=== PATIENT | female | born 1955 | race Caucasian/White ===

== ENCOUNTER → 2018-11-17 09:03 | Outpatient (CLI) | payer MEDICARE, SELFPAY ==
--- NOTE | 2018-11-17 09:07 | XR_ITS ---
XR elbow LT min 3V HISTORY: Pain, follow-up fracture ITS.REASON: follow up, xrays out of sling ORDERING PHYSICIAN: Kenyon Stephens MD PATIENT AGE: 63 years COMPARISON: 10/21/2018 FINDINGS: Previously noted radial head fracture is less apparent. No displaced fat pad evident at this time. Calcifications once again noted in the antecubital region and may be due to synovial osteochondromas. There is some mild osteoarthritic changes of the elbow joint. 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
== END ==
PROVIDERS: PCP Physician Assistant; Visit Provider Orthopaedic Surgery
DX: S52.125A Nondisplaced fracture of head of left radius, initial encounter for closed fracture (principal)
CPT/HCPCS: 73080

== ENCOUNTER → 2019-06-28 08:32 | Outpatient (CLI) | payer MEDICARE, SELFPAY ==
--- NOTE | 2019-06-28 08:37 | CT_ITS ---
PROCEDURE: CT HEAD/BRAIN WO/W CON CLINICAL INDICATION: HEADACHES, right-sided and DIZZINESS COMPARISON: No exams were available for comparison TECHNIQUE: IV Contrast: 100ML OPITRAY 320 Axial images obtained. All CT scans at the facility use one or more dose reduction, viz: automated exposure control, ma/kV adjustment per patient size (including targeted exams where dose is matched to indication, i.e. head), or iterative reconstruction technique. FINDINGS: No midline shift, mass effect, intracranial hemorrhage, hydrocephalus, or extra-axial fluid collection is evident. The calvarium has an unremarkable appearance. Following ingestion contrast there is no vascular abnormality noted and there is no abnormal enhancement. The base of skull appears normal, the mastoids are clear. The bony calvarium appears intact. IMPRESSION: Unremarkable CT scan of the brain without and with IV contrast Dictated by: Dr. Abelino Phoenix MD 06/28/2019 10:[address] Abelino Phoenix MD in [place] 06/28/2019 10:48
[2019-06-28 09:24] LABS: Blood Urea Nitrogen 25 mg/dL (7-18); Creatinine,Serum 1.47 mg/dL (0.55-1.02); Estimated Glomerular Filt Rate 36 ml/min (>60); GFR (African American) 43 ML/MIN (>60)
== END ==
PROVIDERS: PCP Physician Assistant; Visit Provider Physician Assistant
DX: R51 Headache (principal); R42 Dizziness and giddiness
CPT/HCPCS: 36415; 70470; 82565; 84520; Q9967

== ENCOUNTER 2020-01-13 12:43 | Emergency (ER) | payer MEDICARE, SELFPAY ==
[2020-01-13] VITALS (7 sets, daily range): BP systolic 127–155; BP diastolic 80–101; PULSE 81–113; RESP 16–18; TEMP 36.4; O2SAT 93–100; BMI 35.4
[2020-01-13 13:20] LABS: Eosinophils # 0.1 K/mm3 (0.0-0.4); Mean Corpuscular Volume 87.9 fl (81-99); Red Cell Distribution Width 13.9 % (11.5-17.5)
[2020-01-13 13:22] LABS: Basophils % 0.2 % (0.1-2.0); Chloride 101 mmol/L (98-107); Eosinophils % 1.6 % (0.1-12.0); Hematocrit 56.7 % (37.0-47.0); Lymphocytes # 0.4 K/mm3 (0.7-4.5); Lymphocytes % 5.4 % (10-50); Mean Corpuscular HGB Conc 33.1 g/dL (31.8-35.4); Mean Corpuscular Hemoglobin 29.1 pg (27.0-31.2); Monocytes # 0.3 K/mm3 (0.1-1.0); Monocytes % 4.8 % (1.7-9.3); Neutrophils # 5.8 K/mm3 (1.8-7.8); Neutrophils % 87.9 % (37.0-80.0); Platelet Count 266 K/mm3 (142-424); Red Blood Count 6.45 M/mm3 (4.20-5.40); White Blood Count 6.6 K/mm3 (4.8-10.8)
[2020-01-13 13:23] LABS: Hemoglobin 18.8 g/dL (12.2-16.2); Potassium 4.1 mmoL/L (3.5-5.1); Sodium 141 mmol/L (136-145)
[2020-01-13 13:24] LABS: MANUAL DIFFERENTIAL MANUAL DIFFERENTIAL (MANUAL DIFF)
[2020-01-13 13:25] LABS: Alanine Aminotransferase 25 U/L (12-78); Alkaline Phosphatase 114 U/L (38-126); Anion Gap 20.1 mEq/L (5-15); Aspartate Amino Transferase 22 U/L (14-36); Bilirubin,Total 0.8 mg/dl (0.2-1.3); Blood Urea Nitrogen 22 mg/dl (7-17); Carbon Dioxide 24 mmol/L (22.0-30.0); Creatinine Clearance Estimated 43 mL/min (50-200); Estimated Glomerular Filt Rate 27 ml/min (>60); GFR (African American) 32 ML/MIN (>60)
[2020-01-13 13:26] LABS: Albumin Level 4.7 g/dl (3.5-5.0); Albumin/Globulin Ratio 1.1 (1.1-1.8); Calcium 9.9 mg/dl (8.4-10.2); Globulin 4.1 g/dL (1.3-3.2); Glucose 183 mg/dl (74-100); Total Protein,Serum 8.8 g/dl (6.3-8.2)
[2020-01-13 13:30] LABS: Eosinophils % 1 % (0-3); Lymphocytes % 6 % (10-50); Monocytes % 3 % (2-9); Neutrophils % 87 % (42-76); Platelet Estimate Normal; RBC Morphology Normal; Total Cells Counted 100
--- NOTE | 2020-01-13 13:35 | HMH.EDNVD ---
ED Disposition Clinical Impression: Gastroenteritis Disposition: Home, Self-Care Condition on Discharge: Good Instructions: DI for Nausea -- Adult, DI for Nausea -- Child, DI for Diarrhea and Traveler's Diarrhea -- Adult, DI for Diarrhea and Traveler's Diarrhea -- Child Prescriptions: Promethazine HCl 50 mg PO TID 6 Days #20 tab Transmission Status: Pending to [facility] #[id number] Ondansetron [Zofran 4mg ODT] 4 mg PO TID PRN 4 Days #15 tab.rapdis PRN Reason: Nausea Transmission Status: Pending to [facility] #[id number] Referrals: Deepali Smith [Primary Care Provider] - - Critical Care Critical Care Time: No Attestation: On 01/13/20, the high probability of a clinically significant, sudden or life threatening deterioration of the following system(s) required my full and direct attention, intervention and personal management. The time I documented below is in addition to time spent performing reported procedures but includes the following listed in this critical care notation. Medical Decision Making - Medical Records Medical records reviewed: Yes: I reviewed the patient's medical records. - Vj Inquiry Pt receiving controlled substance: No Vital Signs: 01/13/20 13:00 Temperature 97.6 F Temperature Source Oral Pulse Rate [Right Radial] 113 H Respiratory Rate 18 Blood Pressure [Right Arm] 128/97 H Blood Pressure Mean [Right Arm] 107 Blood Pressure Source [Right Arm] Automatic Cuff Blood Pressure Position [Right Arm] Sitting 02 Sat by Pulse Oximetry 94 L Oxygen Delivery Method Room Air - Lab Data Lab results reviewed: Yes: I reviewed the patient's lab results. Lab Results 01/13/20 13:00: WBC 6.6, RBC 6.45 H, Hgb 18.8 H*, Hct 56.7 H, MCV 87.9, MCH 29.1, MCHC 33.1, RDW 13.9, Plt Count 266, MPV 9.0, Neut % (Auto) 87.9 H, Lymph % (Auto) 5.4 L, [place] % (Auto) 4.8, Eos % (Auto) 1.6, Baso % (Auto) 0.2, Neut # (Auto) 5.8, Lymph # (Auto) 0.4 L, [place] # (Auto) 0.3, Eos # (Auto) 0.1, Baso # (Auto) 0.0, Total Counted 100, Neutrophils % (Manual) 87 H, Band Neutrophils % 2.0, Lymphocytes % (Manual) 6 L, Monocytes % (Manual) 3, Eosinophils % (Manual) 1, Metamyelocytes % 1.0, Platelet Estimate Normal, RBC Morphology Normal 01/13/20 13:00: Sodium 141, Potassium 4.1, Chloride 101, Carbon Dioxide 24, Anion Gap 20.1 H, BUN 22 H, Creatinine 1.90 H, Estimated Creat Clear 43, Estimated GFR 27 L, Est GFR ( Amer) 32 L, Glucose 183 H, Calcium 9.9, Total Bilirubin 0.8, AST 22, ALT 25, Alkaline Phosphatase 114, Total Protein 8.8 H, Albumin 4.7, Globulin 4.1 H, Albumin/Globulin Ratio 1.1 Result diagrams: 01/13/20 13:00 01/13/20 13:00 Orders (Tests/Meds): ED MEDICATIONS Generic Name Dose Route Start Last Admin Trade Name Freq PRN Reason Stop Dose Admin Sodium Chloride 1,000 mls @ 999 mls/hr 01/13/20 13:15 01/13/20 13:10 Sod Chlor 0.9% 1000ml Bag IV 01/13/20 14:15 999 mls/hr .Q1H1M ALFONZO Administration Discontinued Medications Generic Name Dose Route Start Last Admin Trade Name Freq PRN Reason Stop Dose Admin Ondansetron HCl 4 mg 01/13/20 13:09 01/13/20 13:10 Zofran 4mg/2ml Vial IV 01/13/20 13:10 4 mg ONCE ONE Administration ORDERS Category Date Time Status Diarrhea 23 Panel, PCR Stat Lab 01/13/20 13:09 Ordered Urinalysis and Microscopic Stat Lab 01/13/20 13:09 Ordered Nausea/Vomiting/Diarrhea HPI - General Chief complaint: Nausea/Vomiting/Diarrhea Stated complaint: Vomiting, diarrhea Time Seen by Provider: 01/13/20 13:35 Mode of Arrival: Wheelchair Source of Information: Patient Limitations: No Limitations Description of Symptoms (Recalled from ER Triage Doc. by RN): pt reports vomitting and diarrhea since 10 pm lastnight. Pt reports generalized weakness. Pt also reports her daughter and her grandson also have vomitting and diarrhea since lastnight. - History of Present Illness HPI Narrative: 64-year-old female comes in with a 12-hour onse
--- NOTE | 2020-01-13 16:05 | PC.NURSE ---
pt drinking water, tolerating well
[2020-01-13 16:32] LABS: Microscopic, Urine URINE MICROSCOPIC (MICROSCOPIC)
[2020-01-13 16:34] LABS: Appearance,Urine CLEAR (Clear); Bilirubin,Urine Negative (Negative); Blood, Urine Negative (Negative); Color,Urine YELLOW (Yellow); Glucose,Urine (UA) Negative (Negative); Ketones,Urine Negative (Negative); Leukocyte Esterase,Urine Negative (Negative); Nitrate,Urine Negative (Negative); Protein,Urine 1+ (Negative); Specific Gravity, Urine >= 1.030 (1.005-1.030); Urobilinogen,Urine 0.2 EU/dl (0.2)
[2020-01-13 16:42] LABS: Amorphous Sediment,Urine Trace /lpf; Coarse Granular Casts,Urine Occasional #/lpf (0); WBC,Urine Occasional #/hpf (0-3)
== END 2020-01-13 16:57 | disposition home or self-care (01) ==
PROVIDERS: Emergency Provider Family Medicine; PCP Physician Assistant
DX: K52.9 Noninfective gastroenteritis and colitis, unspecified (principal); I10 Essential (primary) hypertension; K21.9 Gastro-esophageal reflux disease without esophagitis; F41.8 Other specified anxiety disorders; F17.210 Nicotine dependence, cigarettes, uncomplicated
CPT/HCPCS: 80053; 81001; 85007; 85025; 96365; 96366; 96375; 99283; 99284; J2405

== ENCOUNTER 2020-04-30 08:41 | Inpatient (IN) | payer MEDICARE, SELFPAY ==
[2020-04-30] VITALS (10 sets, daily range): BP systolic 117–145; BP diastolic 70–77; PULSE 54–59; RESP 16–20; TEMP 36.4–36.7; O2SAT 92–97; BMI 37.2; BMI 36.0
--- NOTE | 2020-04-30 08:37 | ECG_ITS ---
APPROVED REPORT Exam: Resting ECG HR:54 bpm ECG Measurements Heart Rate 54 AXES SD 146 P 65 QRSd 88 QRS 62 QT 460 T 67 QTc 436 Conclusion Sinus bradycardia Otherwise normal ECG Electronically signed by : Kishor Khan, 05/01/2020 07:30:13
--- NOTE | 2020-04-30 08:45 | HMH.EDGENADL ---
ED Disposition Clinical Impression: Pancreatitis due to biliary obstruction Qualifiers: Chronicity: acute Acute pancreatitis complication: no infection or necrosis Qualified Code(s): K85.10 - Biliary acute pancreatitis without necrosis or infection Disposition: Admitted As Inpatient Condition on Discharge: Fair Instructions: DI for Acute Abdomen Referrals: Deepali Smith [Primary Care Provider] - - Critical Care Critical Care Time: No Attestation: On , the high probability of a clinically significant, sudden or life threatening deterioration of the following system(s) required my full and direct attention, intervention and personal management. The time I documented below is in addition to time spent performing reported procedures but includes the following listed in this critical care notation. Medical Decision Making - Medical Records Medical records reviewed: Yes: I reviewed the patient's medical records. - Vj Inquiry Pt receiving controlled substance: No Vital Signs: 04/30/20 08:41 04/30/20 10:11 Temperature 97.6 F Temperature Source Temporal Artery Scan Pulse Rate [Right] 54 L 58 L Respiratory Rate 18 20 Blood Pressure [Right Arm] 128/77 126/72 Blood Pressure Mean [Right Arm] 94 90 02 Sat by Pulse Oximetry 97 93 L Oxygen Delivery Method Room Air - Lab Data Lab Results 04/30/20 08:50: WBC 8.8, RBC 5.41 H, Hgb 15.4, Hct 48.8 H, MCV 90.3, MCH 28.5, MCHC 31.5 L, RDW 15.0, Plt Count 233, MPV 8.7, Neut % (Auto) 70.1, Lymph % (Auto) 21.9, [place] % (Auto) 5.3, Eos % (Auto) 2.1, Baso % (Auto) 0.6, Neut # (Auto) 6.2, Lymph # (Auto) 1.9, [place] # (Auto) 0.5, Eos # (Auto) 0.2, Baso # (Auto) 0.1 04/30/20 08:50: Sodium 141, Potassium 4.0, Chloride 101, Carbon Dioxide 35 H, Anion Gap 9.0, BUN 21 H, Creatinine 1.40 H, Estimated Creat Clear 61, Estimated GFR 38 L, Est GFR ( Amer) 46 L, Glucose 147 H, Calcium 9.6, Total Bilirubin 1.4 H, AST 391 H*, ALT 230 H, Alkaline Phosphatase 222 H, Troponin I < 0.01, Total Protein 7.4, Albumin 4.1, Globulin 3.3 H, Albumin/Globulin Ratio 1.2, Amylase 696 H* Result diagrams: 04/30/20 08:50 04/30/20 08:50 Orders (Tests/Meds): ED MEDICATIONS Discontinued Medications Generic Name Dose Route Start Last Admin Trade Name Carla PRN Reason Stop Dose Admin Morphine Sulfate 4 mg 04/30/20 08:49 04/30/20 09:05 Morphine 4mg/Ml Syringe IV 04/30/20 08:50 4 mg ONCE ONE Administration Ondansetron HCl 4 mg 04/30/20 08:49 04/30/20 09:05 Ondansetron 4mg/2ml Vial IV 04/30/20 08:50 4 mg ONCE ONE Administration ORDERS Category Date Time Status Amylase Stat Lab 04/30/20 08:50 Results Comprehensive Metabolic Panel Stat Lab 04/30/20 08:50 Results Lipase Stat Lab 04/30/20 08:50 Results Troponin I Q3H Lab 04/30/20 12:00 Ordered Troponin I Q3H Lab 04/30/20 15:00 Ordered Troponin I Stat Lab 04/30/20 08:50 Results Medical Decision Narrative: In summary this is a 64-year-old female presenting to the emergency department with epigastric and right upper quadrant pain. Patient clinically stable on arrival. Vital signs within normal limits, she is conversational but appears uncomfortable. Differential diagnoses include acute cholelithiasis, cholecystitis, peptic ulcer disease, CAD. Plan to obtain CBC, CMP, lipase, right upper quadrant ultrasound, chest x-ray, EKG, troponin profile. Given 4 mg of IV morphine and 4 mg of IV Zofran. Laboratory results show evidence of biliary tract obstruction with bilirubin of 1.4, elevated AST, elevated ALT. Significantly elevated amylase and lipase. Right upper quadrant ultrasound shows gallstones within the fundus, but no biliary ductal dilation. Overall presentation most consistent with pancreatitis, due to gallstone. No cholecystitis. Patient stable in the emergency department. Feeling somewhat better after medication. General surgery, Dr. Boyle consulted for possible cholecystectomy. Patient be admitted
--- NOTE | 2020-04-30 08:48 | XR_ITS ---
PROCEDURE: XR CHEST PORTABLE CLINICAL HISTORY: epigastric pain, chest COMPARISON: No exams were available for comparison FINDINGS: The cardiomediastinal silhouette and pulmonary vascularity are within normal limits. No lobar consolidation or collapse. There is irregular opacity noted in the right upper lobe at 2nd interspace which may be due to summation artifact. Cannot exclude developing pulmonary nodule at 8 mm. Upright PA and lateral chest may provide further evaluation. No acute bony abnormalities. IMPRESSION: Possible right upper lobe nodule. Follow-up suggested otherwise negative Dictated by: Zaid Rivas MD 04/30/2020 09:44 Zaid Rivas MD in [place] 04/30/2020 09:44
--- NOTE | 2020-04-30 08:49 | US_ITS ---
PROCEDURE: US ABDOMEN LIMITED CLINICAL INDICATION: RUQ abdominal pain COMPARISON: No exams were available for comparison FINDINGS: PANCREAS: Unremarkable. No obvious mass or abnormal fluid collection. No ductal dilatation LIVER: No focal liver lesions demonstrated. Homogeneous echogenicity. No intrahepatic biliary ductal dilatation evident. There is appropriate direction of blood flow within a non dilated portal vein RIGHT KIDNEY: Unremarkable. Normal size and echogenicity. No hydronephrosis GALLBLADDER: There are multiple shadowing stones present. No gallbladder wall thickening, pericholecystic fluid, or biliary dilatation is evident. IMPRESSION: Cholelithiasis Dictated by: Zaid Rivas MD 04/30/2020 09:52 Zaid Rivas MD in [place] 04/30/2020 09:52
[2020-04-30 09:03] LABS: Basophils # 0.1 K/mm3 (0-0.2); Basophils % 0.6 % (0.1-2.0); Eosinophils # 0.2 K/mm3 (0.0-0.4); Eosinophils % 2.1 % (0.1-12.0); Hematocrit 48.8 % (37.0-47.0); Hemoglobin 15.4 g/dL (12.2-16.2); Lymphocytes # 1.9 K/mm3 (0.7-4.5); Lymphocytes % 21.9 % (10-50); Mean Corpuscular HGB Conc 31.5 g/dL (31.8-35.4); Mean Corpuscular Hemoglobin 28.5 pg (27.0-31.2); Mean Corpuscular Volume 90.3 fl (81-99); Mean Platelet Volume 8.7 fl (7.4-10.4); Monocytes # 0.5 K/mm3 (0.1-1.0); Monocytes % 5.3 % (1.7-9.3); Neutrophils # 6.2 K/mm3 (1.8-7.8); Neutrophils % 70.1 % (37.0-80.0); Platelet Count 233 K/mm3 (142-424); Red Blood Count 5.41 M/mm3 (4.20-5.40); White Blood Count 8.8 K/mm3 (4.8-10.8)
[2020-04-30 09:11] LABS: Alanine Aminotransferase 230 U/L (12-78); Albumin Level 4.1 g/dl (3.5-5.0); Albumin/Globulin Ratio 1.2 (1.1-1.8); Alkaline Phosphatase 222 U/L (38-126); Amylase 696 U/L (30-110); Aspartate Amino Transferase 391 U/L (14-36); Bilirubin,Total 1.4 mg/dl (0.2-1.3); Blood Urea Nitrogen 21 mg/dl (7-17); Calcium 9.6 mg/dl (8.4-10.2); Carbon Dioxide 35 mmol/L (22.0-30.0); Chloride 101 mmol/L (98-107); Creatinine Clearance Estimated 61 mL/min (50-200); Estimated Glomerular Filt Rate 38 ml/min (>60); GFR (African American) 46 ML/MIN (>60); Globulin 3.3 g/dL (1.3-3.2); Glucose 147 mg/dl (74-100); Sodium 141 mmol/L (136-145); Total Protein,Serum 7.4 g/dl (6.3-8.2)
[2020-04-30 09:24] LABS: Troponin I < 0.01 ng/ml (0.00-0.034)
--- NOTE | 2020-04-30 10:24 | PC.NURSE ---
message left for DR MORALES to call back
--- NOTE | 2020-04-30 10:31 | PC.NURSE ---
Dr Arthur spoke with Dr Mckeon and Dr Boyle
--- NOTE | 2020-04-30 11:32 | HMH.PHAINT ---
MEDICATION RECONCILIATION COMPLETED ON PATIENT USING EXTERNAL FILL HISTORY FROM PHARMACY. -WALE FOUNTAIN, JASOND
--- NOTE | 2020-04-30 11:33 | HMH.PHAVTE ---
[facility] Pharmacy VTE Monitoring - Patient Demographics Admission date: 04/30/20 Report Date: 04/30/20 Time: 11:33 Allergies/Adverse Reactions: Patient Allergies No Known Drug Allergies [NO KNOWN DRUG ALLERGIES] Allergy (Unknown, Verified 11/17/18 10:17) Height: 1.6 m Weight: 95.254 kg Patient Problems: Current Active Problems Pancreatitis due to biliary obstruction (Acute) - VTE Risk Labs: VTE Related Lab Results Hgb 15.4 g/dL (12.2-16.2) 04/30/20 08:50 Hct 48.8 % (37.0-47.0) H 04/30/20 08:50 Plt Count 233 K/mm3 (142-424) 04/30/20 08:50 BUN 21 mg/dl (7-17) H 04/30/20 08:50 Creatinine 1.40 mg/dl (0.52-1.04) H 04/30/20 08:50 Estimated Creat Clear 61 mL/min (50-200) 04/30/20 08:50 - Prophylaxis VTE Prophylaxis Ordered?: Yes Types of VTE Prophylaxis: TEDS Knee High Location of Applied Device: Bilateral Lower Extremeties
[2020-04-30 11:48] LABS: Coronavirus 19 IgG Antibody Negative (Negative); Coronavirus 19 IgM Antibody Negative (Negative)
--- NOTE | 2020-04-30 12:00 | PC.NURSE ---
Called 2nd floor to notify of IGG/IGM being negative
--- NOTE | 2020-04-30 12:11 | PC.NURSE ---
Report given to 2nd floor nurse Ginny at bedside
--- NOTE | 2020-04-30 12:55 | HMH.HP ---
*Admission Date: 04/30/20 <McmanusAzaleaAngi 04/30/20 13:16> *Chief complaint: abdominal pain <McmanusAngi 04/30/20 13:16> *History of present illness: Ms. Gibson is a 64 year old female with a history of hypertension and arthritis being cared for by a nurse practitioner in [place], [place] who presented to [facility] emergency room with severe right upper quadrant abdominal pain. She states the pain awakened her about 2 AM. She has had associated nausea and minimal vomiting. Her bowels have been moving normally. She states last night for dinner she had fried potatoes and sausage. She denies any fever and has had one episode of pain back in August at which time the plan was to for her to have a cholecystectomy. Sheela did delay this and she has yet to have her gallbladder taken out. Patient denies any cardiac or respiratory problems although she does smoke a pack and a half of cigarettes a day. At the present time she appears comfortable after receiving morphine and Zofran in the emergency room. Lab results show a white blood cell count of 8800. Liver function studies are all elevated. Amylase is 696. Right upper quadrant ultrasound revealed gallstones within the fundus but no biliary ductal dilatation. Chest x-ray shows a possible right upper lobe nodule and is otherwise negative. Patient was admitted for further evaluation. The surgeon has been consulted. <MariettaAngi 04/30/20 13:16> [facility] History Medical History: Reports:: Anxiety, Depression, Gastroesophageal Reflux Disease(GERD), Hypertension Denies:: Diabetes Mellitus Type 2 <Angi Mcmanus 04/30/20 13:16> *Have you ever received a pneumonia vaccine?: No <Angi Mcmanus 04/30/20 13:16> *Have you received a flu vaccine this season?: No <Angi Mcmanus 04/30/20 13:16> Other Medical History: Reports: Arthritis <Angi Mcmanus 04/30/20 13:16> Laterality Cases: Left: Arthroscopy Knee, Right: Other, Bilateral: Carpal Tunnel Release <Angi Mcmanus 04/30/20 13:16> Other Surgeries: Yes: Colonoscopy <Angi Mcmanus 04/30/20 13:16> - *Social History Smoking Status: Current every day smoker <Anig Mcmanus 04/30/20 13:16> Tobacco Type: cigarettes <Angi Mcmanus 04/30/20 13:16> # Packs/Day (cigarettes): 1 <Angi Mcmanus 04/30/20 13:16> Alcohol Intake: never <Angi Mcmanus 04/30/20 13:16> *Occupational Status:: other <Angi Mcmanus 04/30/20 13:16> Household Members: family <Angi Mcmanus 04/30/20 13:16> *Travel in the last 8 weeks: None <Angi Mcmanus 04/30/20 13:16> - Psychiatric History Pschychiatric History:: Reports:: Anxiety, Depression <Angi Mcmanus 04/30/20 13:16> Family Hx:: No significant family history <Angi Mcmanus 04/30/20 13:16> Review of Systems - Constitutional Denies fever(s), Denies headache(s) <McmanusAngi 04/30/20 13:16> - Eyes Denies change in vision <McmanusAngi 04/30/20 13:16> - ENT Reports ear pain, Reports sore throat, Denies dizziness <MariettaAngi 04/30/20 13:16> - *Cardiovascular Denies chest pain, Denies shortness of breath <MariettaAngi 04/30/20 13:16> - *Respiratory Reports cough <MariettaAngi 04/30/20 13:16> - *Gastrointestinal Reports abdominal pain, Reports heartburn, Reports nausea, Reports vomiting, Denies change in bowel habits, Denies constipation, Denies loose stools, Denies vomiting blood <Azalea Mcmanushy 04/30/20 13:16> - *Genitourinary Denies difficulty urinating <MariettaAngi - 04/30/20 13:16> - *Musculoskeletal Denies abnormal walking <McmanusAngi 04/30/20 13:16> Comments: Has arthritis <McmanusAngi - 04/30/20 13:16> - *Neurologic Denies headache(s), Denies numbness <McmanusAngi 04/30/20 13:16> Meds Home Medications Medication Instructions Recorded Confirmed Type Duloxetine HCl 60 mg PO DAILY 10/21/18 04/30/20 History Levothyroxine Sodium 50 mcg PO DAILY 10/21/18 04/30/20 History [Levoth
[2020-04-30 13:01] LABS: Lipase 18959 U/L (23-300)
--- NOTE | 2020-04-30 16:22 | PC.NURSE ---
Pt arrived to the floor via wheelchair accompanied by myself at approx 1220. She is alert and oriented x4. Lungs with rhonchi and wheezes in the KIT. Abdomen is tender to palpation in RUQ and epigastrum. No nausea or vomiting noted. Pt has not wanted any pain meds since arriving to the floor as of yet. Small scab noted to rt forearm. She has a 20 in the LAC, its patent and infusing ns @ 125. Family at bedside and supportive. No questions or concerns, will continue to monitor.
--- NOTE | 2020-04-30 16:28 | HMH.GSCON ---
*Admission Date: 04/30/20 *Reason for consult:: Gallstone pancreatitis *History of present illness: This is a 64-year-old female who presents to emergency department with increasing abdominal pain. She was diagnosed with likely gallstone pancreatitis and the surgical service was consulted. Currently, she states that she feels much better . A truncated HPI from her admission H&P is forwarded below. From admission H&P: Ms. Gibson is a 64 year old female with a history of hypertension and arthritis being cared for by a nurse practitioner in [place], [place] who presented to [facility] emergency room with severe right upper quadrant abdominal pain. She states the pain awakened her about 2 AM. She has had associated nausea and minimal vomiting. Her bowels have been moving normally. She states last night for dinner she had fried potatoes and sausage. She denies any fever and has had one episode of pain back in August at which time the plan was to for her to have a cholecystectomy. Covid did delay this and she has yet to have her gallbladder taken out. Patient denies any cardiac or respiratory problems although she does smoke a pack and a half of cigarettes a day. At the present time she appears comfortable after receiving morphine and Zofran in the emergency room. Lab results show a white blood cell count of 8800. Liver function studies are all elevated. Amylase is 696. Right upper quadrant ultrasound revealed gallstones within the fundus but no biliary ductal dilatation. Chest x-ray shows a possible right upper lobe nodule and is otherwise negative. Patient was admitted for further evaluation. The surgeon has been consulted. Review of Systems - Constitutional Denies chills - Eyes Denies change in vision - ENT Denies difficulty swallowing - *Cardiovascular Denies chest pain - *Respiratory Denies cough - *Gastrointestinal Reports abdominal pain - *Genitourinary Denies painful urination - *Musculoskeletal Denies tingling - Integumentary/Breasts Denies new lesions - *Neurologic Denies abnormal walking, Denies dizziness, Denies headache(s), Denies numbness - Psychiatric Denies anxiety - Endocrine Denies cold intolerance - Hematologic/Lymphatic Denies easy bleeding - Allergic/Immunologic Denies wheezing H History Medical History: Reports:: Anxiety, Depression, Gastroesophageal Reflux Disease(GERD), Hypertension Denies:: Diabetes Mellitus Type 1, Diabetes Mellitus Type 2 *Have you ever received a pneumonia vaccine?: Yes *Have you received a flu vaccine this season?: No Other Medical History: Reports: Arthritis, Cataracts (cataracts removed), Fibromyalgia, Hypothyroidism, Thyroid Disease Laterality Cases: Left: Arthroscopy Knee, Right: Other, Bilateral: Carpal Tunnel Release Other Surgeries: Yes: Colonoscopy - *Social History Smoking Status: Current every day smoker Tobacco Type: cigarettes # Packs/Day (cigarettes): 1 Alcohol Intake: never *Occupational Status:: disabled Housing: house Household Members: family *Travel in the last 8 weeks: None - Psychiatric History Pschychiatric History:: Reports:: Anxiety, Depression Family Hx:: No significant family history Meds Home Medications Medication Instructions Recorded Confirmed Type Duloxetine HCl 60 mg PO DAILY 10/21/18 04/30/20 History Levothyroxine Sodium 50 mcg PO DAILY 10/21/18 04/30/20 History [Levothyroxine 50mcg (0.05mg) Tab] atenoloL [Atenolol 50mg Tab] 50 mg PO DAILY 10/21/18 04/30/20 History predniSONE [Deltasone 10mg tablet] 5 mg PO DAILY 10/21/18 04/30/20 History esomeprazole magnesium 40 mg 40 mg PO DAILY 10/27/18 04/30/20 History capsule,delayed release Hydrocodone/Acetaminophen [[place] 1 tab PO TIDP PRN 04/30/20 04/30/20 History 7.5-325 Tablet] Montelukast Sodium [Singulair 10mg 10 mg PO PM 04/30/20 04/30/20 History tablet] Logan-3 Fatty Acids/Fish Oil 1 each PO DAILY
--- NOTE | 2020-04-30 19:17 | PC.NURSE ---
report given to denzel
[2020-05-01] VITALS (22 sets, daily range): BP systolic 115–160; BP diastolic 58–90; PULSE 55–87; RESP 12–20; TEMP 36.4–36.8; O2SAT 89–97; BMI 36.9
[2020-05-01 06:19] LABS: Basophils # 0.1 K/mm3 (0-0.2); Basophils % 0.5 % (0.1-2.0); Eosinophils # 0.3 K/mm3 (0.0-0.4); Eosinophils % 3.6 % (0.1-12.0); Hematocrit 43.2 % (37.0-47.0); Lymphocytes # 2.4 K/mm3 (0.7-4.5); Lymphocytes % 27.7 % (10-50); Mean Corpuscular HGB Conc 30.5 g/dL (31.8-35.4); Mean Corpuscular Hemoglobin 27.7 pg (27.0-31.2); Mean Corpuscular Volume 90.8 fl (81-99); Mean Platelet Volume 8.8 fl (7.4-10.4); Monocytes # 0.5 K/mm3 (0.1-1.0); Monocytes % 5.2 % (1.7-9.3); Neutrophils # 5.5 K/mm3 (1.8-7.8); Platelet Count 193 K/mm3 (142-424); Red Blood Count 4.76 M/mm3 (4.20-5.40); Red Cell Distribution Width 15.1 % (11.5-17.5); White Blood Count 8.7 K/mm3 (4.8-10.8)
[2020-05-01 06:26] LABS: Chloride 105 mmol/L (98-107); Sodium 138 mmol/L (136-145)
--- NOTE | 2020-05-01 06:26 | PC.NURSE ---
Pt is A&Ox4 and has ambulated to the BR and the in hallway several times t/o shift. Pt continues to have pain to upper abd & epigastric area, medicated per SEP. Pt also c/o of shoulder pain that pt reports is her baseline d/t RA & fibromyalgia, medicated with Motrin. Lungs CTA. ABD is soft. Pt reports to passing flatus frequently and belching. Pt kept NPO at midnight for possible procedure. VSS, call light within reach.
[2020-05-01 06:27] LABS: Potassium 4.1 mmoL/L (3.5-5.1)
[2020-05-01 06:29] LABS: Alanine Aminotransferase 202 U/L (12-78); Albumin Level 3.6 g/dl (3.5-5.0); Albumin/Globulin Ratio 1.2 (1.1-1.8); Alkaline Phosphatase 166 U/L (38-126); Amylase 145 U/L (30-110); Anion Gap 7.1 mEq/L (5-15); Aspartate Amino Transferase 114 U/L (14-36); Bilirubin,Total 0.7 mg/dl (0.2-1.3); Blood Urea Nitrogen 18 mg/dl (7-17); Calcium 8.8 mg/dl (8.4-10.2); Carbon Dioxide 30 mmol/L (22.0-30.0); Creatinine Clearance Estimated 65 mL/min (50-200); Estimated Glomerular Filt Rate 41 ml/min (>60); GFR (African American) 50 ML/MIN (>60); Globulin 2.9 g/dL (1.3-3.2); Glucose 88 mg/dl (74-100); Total Protein,Serum 6.5 g/dl (6.3-8.2)
--- NOTE | 2020-05-01 06:42 | HMH.GSPN ---
Subjective Patient reports: feels better Progress Note: A&P (1) Pancreatitis due to biliary obstruction Status: Acute (2) Cholelithiasis Status: Acute (3) Arthritis Status: Chronic (4) Hypertension Status: Chronic (5) Tobacco use disorder Status: Chronic (6) Chronic steroid use Status: Acute (7) Wheeze Status: Acute (8) Gallstone pancreatitis Status: Acute Assessment and plan: Follow-up morning labs Cholecystectomy with intraoperative cholangiogram when pancreatitis resolves Exam Vital signs and Labs for Last 24 Hours: Temp Pulse Resp BP Pulse Ox 98.2 F 67 16 130/79 93 L 05/01/20 04:00 05/01/20 04:00 05/01/20 04:00 05/01/20 04:00 05/01/20 04:00 Laboratory Results - last 24 hr 04/30/20 08:50: WBC 8.8, RBC 5.41 H, Hgb 15.4, Hct 48.8 H, MCV 90.3, MCH 28.5, MCHC 31.5 L, RDW 15.0, Plt Count 233, MPV 8.7, Neut % (Auto) 70.1, Lymph % (Auto) 21.9, [place] % (Auto) 5.3, Eos % (Auto) 2.1, Baso % (Auto) 0.6, Neut # (Auto) 6.2, Lymph # (Auto) 1.9, [place] # (Auto) 0.5, Eos # (Auto) 0.2, Baso # (Auto) 0.1 04/30/20 08:50: Sodium 141, Potassium 4.0, Chloride 101, Carbon Dioxide 35 H, Anion Gap 9.0, BUN 21 H, Creatinine 1.40 H, Estimated Creat Clear 61, Estimated GFR 38 L, Est GFR ( Amer) 46 L, Glucose 147 H, Calcium 9.6, Total Bilirubin 1.4 H, AST 391 H*, ALT 230 H, Alkaline Phosphatase 222 H, Troponin I < 0.01, Total Protein 7.4, Albumin 4.1, Globulin 3.3 H, Albumin/Globulin Ratio 1.2, Amylase 696 H*, Lipase 37757 H 04/30/20 08:50: SARS-CoV-2 IgG Ab (Rapid) Negative, SARS-CoV-2 IgM Ab (Rapid) Negative I & O for Last 24 hours: Intake & Output 04/28/20 04/29/20 04/30/20 05/01/20 11:59 11:59 11:59 11:59 Intake Total 782 / 782 Balance 782 / 782 Weight 210 lb 208 lb 6 oz - Constitutional no acute distress - *Routine Respiratory Exam Absent: respiratory distress - *Routine Cardiovascular Exam Present: RRR - *Routine Abdominal Exam Present: soft, tenderness (TTP improved)
[2020-05-01 07:37] LABS: Lipase 874 U/L (23-300)
[2020-05-01 07:41] LABS: Hemoglobin 13.2 g/dL (12.2-16.2)
--- NOTE | 2020-05-01 08:17 | HMH.ACPN2 ---
<Deya Graves - Last Filed: 05/01/20 08:17> Internal Medicine - PN: Subj *Date: 05/01/20 *Time: 07:45 Interval history: Pt sitting up on the side of the bed talking with visitor. She feels much better this morning. She has had no vomiting overnight although she has had intermittent nausea and frequent belching. She has had just a few episodes of discomfort and describes them as much less severe than her pain yesterday. No pain currently. No loose stools. She is voiding qshift. Exam Vital signs and Labs for Last 24 Hours: Temp Pulse Resp BP Pulse Ox 98.1 F 58 L 20 123/58 L 90 L 05/01/20 08:00 05/01/20 08:00 05/01/20 08:00 05/01/20 08:00 05/01/20 08:00 Laboratory Results - last 24 hr 04/30/20 08:50: WBC 8.8, RBC 5.41 H, Hgb 15.4, Hct 48.8 H, MCV 90.3, MCH 28.5, MCHC 31.5 L, RDW 15.0, Plt Count 233, MPV 8.7, Neut % (Auto) 70.1, Lymph % (Auto) 21.9, [place] % (Auto) 5.3, Eos % (Auto) 2.1, Baso % (Auto) 0.6, Neut # (Auto) 6.2, Lymph # (Auto) 1.9, [place] # (Auto) 0.5, Eos # (Auto) 0.2, Baso # (Auto) 0.1 04/30/20 08:50: Sodium 141, Potassium 4.0, Chloride 101, Carbon Dioxide 35 H, Anion Gap 9.0, BUN 21 H, Creatinine 1.40 H, Estimated Creat Clear 61, Estimated GFR 38 L, Est GFR ( Amer) 46 L, Glucose 147 H, Calcium 9.6, Total Bilirubin 1.4 H, AST 391 H*, ALT 230 H, Alkaline Phosphatase 222 H, Troponin I < 0.01, Total Protein 7.4, Albumin 4.1, Globulin 3.3 H, Albumin/Globulin Ratio 1.2, Amylase 696 H*, Lipase 42057 H 04/30/20 08:50: SARS-CoV-2 IgG Ab (Rapid) Negative, SARS-CoV-2 IgM Ab (Rapid) Negative 05/01/20 05:35: WBC 8.7, RBC 4.76, Hgb 13.2 D, Hct 43.2, MCV 90.8, MCH 27.7, MCHC 30.5 L, RDW 15.1, Plt Count 193, MPV 8.8, Neut % (Auto) 63.0, Lymph % (Auto) 27.7, [place] % (Auto) 5.2, Eos % (Auto) 3.6, Baso % (Auto) 0.5, Neut # (Auto) 5.5, Lymph # (Auto) 2.4, [place] # (Auto) 0.5, Eos # (Auto) 0.3, Baso # (Auto) 0.1 05/01/20 05:35: Sodium 138, Potassium 4.1, Chloride 105, Carbon Dioxide 30, Anion Gap 7.1, BUN 18 H, Creatinine 1.30 H, Estimated Creat Clear 65, Estimated GFR 41 L, Est GFR ( Amer) 50 L, Glucose 88 D, Calcium 8.8, Total Bilirubin 0.7, AST 114 H D, ALT 202 H, Alkaline Phosphatase 166 H, Total Protein 6.5, Albumin 3.6 D, Globulin 2.9, Albumin/Globulin Ratio 1.2, Amylase 145 H D 05/01/20 05:35: Lipase 874 H I & O for Last 24 hours: Intake & Output 04/28/20 04/29/20 04/30/20 05/01/20 11:59 11:59 11:59 11:59 Intake Total 782 / 782 Balance 782 / 782 Weight 210 lb 208 lb 6 oz - Constitutional no acute distress - *Routine HEENT Exam Head: Present: normocephalic ENT: Present: mucous membranes moist - *Routine Neck Exam Present: supple, full ROM. Absent: lymphadenopathy - *Routine Respiratory Exam Present: CTA bilaterally Comments: diminished breath sounds at bases bilaterally - *Routine Cardiovascular Exam Present: RRR - *Routine Abdominal Exam Present: soft, normoactive bowel sounds, obese. Absent: distended, guarding, firm, rigid Comments: ttp bilateral lower quadrants - *Routine Extremities Exam Present: full ROM, pulses intact. Absent: edema, calf tenderness - *Routine Neurological Exam Present: alert, oriented X3, moving all extremities, normal speech Assessment and Plan (1) Pancreatitis due to biliary obstruction Status: Acute Qualifiers: Chronicity: acute Acute pancreatitis complication: no infection or necrosis Qualified Code(s): K85.10 - Biliary acute pancreatitis without necrosis or infection Category: Medical Code(s): K85.90 - Acute pancreatitis without necrosis or infection, unspecified; K83.1 - Obstruction of bile duct (2) Cholelithiasis Status: Acute Category: Medical Code(s): K80.20 - Calculus of gallbladder without cholecystitis without obstruction (3) Arthritis Status: Chronic Category: Medical Code(s): M19.90 - Unspecified osteoarthritis, unspecified site (4) Hypertension Status: Chronic Category: Medical Code(s): I10 -
--- NOTE | 2020-05-01 12:52 | HMH.ANESCL ---
[facility] Anesthesia Checklist - Patient Identification Patient Identification: Arm Band, Verbal (Name & ) - Structural Data Admitted From: Inpatient Planned Operative Procedure/s: Laparoscopic cholecystectomy with cholangiogram Consent for Planned Operative Procedure(s) Verified: Yes Verified Documents: Surgical Consent, History and Physical - NPO Status Verified Time NPO: 00:00 - Chart Verification Results Verified: CBC, BMP - Additional verifications Anesthesia Reactions: No - Airway Assessment C-Spine Mobility Assessed: Yes (MP 2, TMD 3, short and thick neck) TMJ Mobility Assessed: Yes Dentition: Poor Dentition (missing teeth) - Neurological Assessment Level of Consciousness: Awake, Alert, Appropriate, Follows Commands Hx Seizures: No Numbness or tingling in extremities: No - Anesthesia Plan Anesthesia Risk discussed: Yes Anesthesia Plan: Verified ASA Class: III Anesthesia Type: General [facility] History I have reviewed the patient's past medical history: Yes Medical History: Reports:: Anxiety, Asthma, Depression, Gastroesophageal Reflux Disease(GERD), Hypertension Denies:: Diabetes Mellitus Type 1, Diabetes Mellitus Type 2 *Have you ever received a pneumonia vaccine?: Yes *Have you received a flu vaccine this season?: No Other Medical History: Reports: Arthritis, Cataracts (cataracts removed), Fibromyalgia, Hypothyroidism, Thyroid Disease Comment:: Rheumatoid arthritis, obesity, chronic steroid use Anesthesia experience/problems:: None Laterality Cases: Left: Arthroscopy Knee, Right: Other, Bilateral: Carpal Tunnel Release Other Surgeries: Yes: Colonoscopy - *Social History Smoking Status: Current every day smoker Tobacco Type: cigarettes # Packs/Day (cigarettes): 1 Alcohol Intake: never Substance Use Type: denies use *Occupational Status:: disabled Housing: house Household Members: family *Travel in the last 8 weeks: None - Psychiatric History Pschychiatric History:: Reports:: Anxiety, Depression Family Hx:: No significant family history
--- NOTE | 2020-05-01 13:36 | PC.NURSE ---
PT went to OR
--- NOTE | 2020-05-01 15:16 | P.OP_ITS ---
Date of procedure: 05/01/20 Pre-op Diagnosis:: Gallstone pancreatitis Post-op Diagnosis:: Acute calculus cholecystitis Gallstone pancreatitis Procedure performed:: Laparoscopic cholecystectomy (cholangiogram not performed secondary to severe inflammatory response and inability to safely secure cholangiogram catheter) Surgeon:: Surendra Boyle MD [employer]IGATOR SPECIAL AGENT:: Gerson Sahni Anesthesia: GETA Estimated blood loss (mL): 50 Operative findings:: Acute cholecystitis with distention of gallbladder, wall thickening, in serosal inflammation Fairly severe inflammatory response in and around infundibulum Inability to safely secure cholangiogram catheter secondary to simply inflammatory response Sanguinous ooze from hepatic margin (gallbladder fossa) controlled with harmonic veronica, electrocautery, and Surgicel Operative note:: After informed consent was obtained, the patient was taken to the operating room and placed in the supine position. General anesthesia was induced and the abdomen was prepped and draped in a sterile fashion. After infiltration with local anesthetic an infraumbilical incision was made. A Veress needle was placed in position. The abdomen was insufflated. A 5 mm optical trocar was placed in position. Under direct visualization, a 12 mm trocar was placed in the subxiphoid position and 2 additional 5 mm trocars were placed in the right upper quadrant. The gallbladder was elevated up and over the liver margin. Gallbladder was distended and significant inflammation noted. The gallbladder wall was thickened and serosal inflammation/weeping was evident. The tissue around the cystic duct was carefully dissected. This tissue was severely inflamed. A clip was placed at the infundibulum and a partial otomy was made. A dilator and sheath for the cholangiogram catheter was placed through a separate right upper quadrant stab incision. A catheter was then advanced through the sheath. An attempt to place the catheter within the cystic duct was not successful as it could not be advanced and secured. Additional attempts were deemed unwarranted/unsafe secondary to inflammation and friability of tissue. A catheter was removed and 3 clips were placed proximally. The duct was transected with harmonic veronica. Harmonic veronica were then utilized to dissect the gallbladder away from the liver margin with careful attention to the control of the cystic artery. The gallbladder was placed in a retrieval bag and removed through the subxiphoid trocar site. The right upper quadrant was thoro ughly irrigated. Sanguinous ooze along the hepatic margin/gallbladder fossa was controlled with a combination of harmonic veronica, electrocautery, and Surgicel. No active bleeding or bile leak was noted. Fascia at the subxiphoid trocar site was reapproximated utilizing 0 Ethibond. The remaining trocars were removed. All wounds were irrigated and skin was closed with 4-0 Monocryl in a subcuticu lar fashion. Steri-Strips were applied. The patient's anesthetic agents were reversed and extubation was completed prior to transfer to recovery in stable condition. Condition: stable Disposition: PACU Specimens:: Gallbladder and contents Complications:: No immediate
--- NOTE | 2020-05-01 15:29 | HMH.ANESI ---
[facility] Anesthesia Record Part I Intake, IV Amount: 1,500 Estimated blood loss (mL): 400 Urine output (mL): 0 Blood Pressure: 135/82 SaO2: 94 Pulse Rate: 80 Respiratory Rate: 12 Temperature: 97.5 F Patient is:: Awake, Stable Stable to PACU at:: 15:25
--- NOTE | 2020-05-01 16:01 | PC.NURSE ---
Received report from Aziza Barone RN @ [id number]
--- NOTE | 2020-05-01 18:45 | PC.NURSE ---
Sepsis bolus completed @ this time.
[2020-05-02] VITALS: BP 130/76; PULSE 65; RESP 16; O2SAT 92
[2020-05-02 04:00] VITALS: BP 113/70; PULSE 69; RESP 18; TEMP 36.7; O2SAT 93
[2020-05-02 05:00] VITALS: BMI 37.3
--- NOTE | 2020-05-02 05:22 | PC.NURSE ---
shift summary, patient has denies pain, nauseea, vomiting or diarrhea throughout shift. patient has rested well. post op vs completed. breath sounds remain clear, patient titrated off o2 once awake with o2 sats 93% on r/a. pulses regular to palpation with rate in the 60s. patient refused mayra hose. ns infusing into left ac without difficulty.
[2020-05-02 06:27] LABS: Basophils % 0.2 % (0.1-2.0); Eosinophils % 0.1 % (0.1-12.0); Hematocrit 43.4 % (37.0-47.0); Hemoglobin 13.2 g/dL (12.2-16.2); Lymphocytes # 0.9 K/mm3 (0.7-4.5); Lymphocytes % 6.5 % (10-50); Mean Corpuscular HGB Conc 30.4 g/dL (31.8-35.4); Mean Corpuscular Hemoglobin 28.1 pg (27.0-31.2); Mean Corpuscular Volume 92.4 fl (81-99); Monocytes # 0.5 K/mm3 (0.1-1.0); Monocytes % 3.6 % (1.7-9.3); Neutrophils # 11.9 K/mm3 (1.8-7.8); Neutrophils % 89.6 % (37.0-80.0); Platelet Count 191 K/mm3 (142-424); Red Blood Count 4.69 M/mm3 (4.20-5.40); Red Cell Distribution Width 14.9 % (11.5-17.5); White Blood Count 13.3 K/mm3 (4.8-10.8)
[2020-05-02 06:31] LABS: MANUAL DIFFERENTIAL MANUAL DIFFERENTIAL (MANUAL DIFF)
[2020-05-02 06:36] LABS: Chloride 103 mmol/L (98-107); Potassium 4.6 mmoL/L (3.5-5.1); Sodium 139 mmol/L (136-145)
[2020-05-02 06:38] LABS: Alanine Aminotransferase 156 U/L (12-78); Aspartate Amino Transferase 71 U/L (14-36); Blood Urea Nitrogen 18 mg/dl (7-17); Creatinine Clearance Estimated 78 mL/min (50-200); Estimated Glomerular Filt Rate 50 ml/min (>60); GFR (African American) 61 ML/MIN (>60)
[2020-05-02 06:39] LABS: Albumin Level 3.6 g/dl (3.5-5.0); Albumin/Globulin Ratio 1.2 (1.1-1.8); Alkaline Phosphatase 148 U/L (38-126); Anion Gap 10.6 mEq/L (5-15); Bilirubin,Total 0.5 mg/dl (0.2-1.3); Calcium 9.1 mg/dl (8.4-10.2); Carbon Dioxide 30 mmol/L (22.0-30.0); Globulin 2.9 g/dL (1.3-3.2); Glucose 129 mg/dl (74-100); Total Protein,Serum 6.5 g/dl (6.3-8.2)
[2020-05-02 07:16] LABS: Amylase 48 U/L (30-110); Lipase 103 U/L (23-300)
--- NOTE | 2020-05-02 07:17 | P.PN_ITS ---
Subjective Patient reports: no new complaints, feels better Progress Note: A&P (1) Pancreatitis due to biliary obstruction Status: Acute Assessment and plan: Overall, doing very well status post laparoscopic cholecystectomy. Cholangiogram not completed secondary to severe inflammatory changes. Likely discharge home soon with outpatient follow-up. (2) Cholelithiasis Status: Acute (3) Arthritis Status: Chronic (4) Hypertension Status: Chronic (5) Tobacco use disorder Status: Chronic (6) Chronic steroid use Status: Acute (7) Wheeze Status: Acute (8) Gallstone pancreatitis Status: Acute Exam Vital signs and Labs for Last 24 Hours: Temp Pulse Resp BP Pulse Ox 98.1 F 69 18 113/70 93 L 05/02/20 04:00 05/02/20 04:00 05/02/20 04:00 05/02/20 04:00 05/02/20 04:00 Laboratory Results - last 24 hr 05/01/20 05:35: Hgb 13.2 D 05/01/20 05:35: Lipase 874 H 05/02/20 05:45: WBC 13.3 H D, RBC 4.69, Hgb 13.2, Hct 43.4, MCV 92.4, MCH 28.1, MCHC 30.4 L, RDW 14.9, Plt Count 191, MPV 9.0, Neut % (Auto) 89.6 H, Lymph % (A uto) 6.5 L, [place] % (Auto) 3.6, Eos % (Auto) 0.1, Baso % (Auto) 0.2, Neut # (Auto) 11.9 H, Lymph # (Auto) 0.9, [place] # (Auto) 0.5, Eos # (Auto) 0.0, Baso # (Auto) 0.0 05/02/20 05:45: Sodium 139, Potassium 4.6, Chloride 103, Carbon Dioxide 30, Anion Gap 10.6, BUN 18 H, Creatinine 1.10 H, Estimated Creat Clear 78, Estimated GFR 50 L, Est GFR ( Amer) 61 D, Glucose 129 H, Calcium 9.1, Total Bilirubin 0.5, AST 71 H D, ALT 156 H, Alkaline Phosphatase 148 H, Total Protein 6.5, Albumin 3.6, Globulin 2.9, Albumin/Globulin Ratio 1.2 05/02/20 06:45: Amylase 48, Lipase 103 I & O for Last 24 hours: Intake & Output 04/29/20 04/30/20 05/01/20 05/02/20 11:59 11:59 11:59 11:59 Intake Total 782 / 782 2640 / 2640 Balance 782 / 782 2640 / 2640 Weight 210 lb 208 lb 6 oz 210 lb 6.4 oz - Constitutional no acute distress - *Routine Respiratory Exam Absent: respiratory distress - *Routine Cardiovascular Exam Present: RRR - *Routine Abdominal Exam Present: soft Comments: Dressings intact. No erythema.
[2020-05-02 07:22] LABS: Hypochromasia 1+; Lymphocytes % 8 % (10-50); Monocytes % 4 % (2-9); Neutrophils % 85 % (42-76); Platelet Estimate Normal; Total Cells Counted 100
[2020-05-02 08:00] VITALS: BP 123/58; PULSE 66; RESP 20; TEMP 36.8; O2SAT 89
--- NOTE | 2020-05-02 08:25 | HMH.ACPN2 ---
<Deya Graves - Last Filed: 05/02/20 08:25> Internal Medicine - PN: Subj *Date: 05/02/20 *Time: 07:55 Interval history: Patient is resting quietly in bed, arouses easily to voice. She denies any complaint other than tolerable postop discomfort. She has had no nausea or vomiting. She is voiding qshift and was ambulating in the halls last night. Exam Vital signs and Labs for Last 24 Hours: Temp Pulse Resp BP Pulse Ox 98.1 F 69 18 113/70 93 L 05/02/20 04:00 05/02/20 04:00 05/02/20 04:00 05/02/20 04:00 05/02/20 04:00 Laboratory Results - last 24 hr 05/02/20 05:45: WBC 13.3 H D, RBC 4.69, Hgb 13.2, Hct 43.4, MCV 92.4, MCH 28.1, MCHC 30.4 L, RDW 14.9, Plt Count 191, MPV 9.0, Neut % (Auto) 89.6 H, Lymph % (Auto) 6.5 L, [place] % (Auto) 3.6, Eos % (Auto) 0.1, Baso % (Auto) 0.2, Neut # (Auto) 11.9 H, Lymph # (Auto) 0.9, [place] # (Auto) 0.5, Eos # (Auto) 0.0, Baso # (Auto) 0.0, Total Counted 100, Neutrophils % (Manual) 85 H, Band Neutrophils % 3.0, Lymphocytes % (Manual) 8 L, Monocytes % (Manual) 4, Platelet Estimate Normal, Hypochromasia 1+ 05/02/20 05:45: Sodium 139, Potassium 4.6, Chloride 103, Carbon Dioxide 30, Anion Gap 10.6, BUN 18 H, Creatinine 1.10 H, Estimated Creat Clear 78, Estimated GFR 50 L, Est GFR ( Amer) 61 D, Glucose 129 H, Calcium 9.1, Total Bilirubin 0.5, AST 71 H D, ALT 156 H, Alkaline Phosphatase 148 H, Total Protein 6.5, Albumin 3.6, Globulin 2.9, Albumin/Globulin Ratio 1.2 05/02/20 06:45: Amylase 48, Lipase 103 I & O for Last 24 hours: Intake & Output 04/29/20 04/30/20 05/01/20 05/02/20 11:59 11:59 11:59 11:59 Intake Total 782 / 782 2640 / 2640 Balance 782 / 782 2640 / 2640 Weight 210 lb 208 lb 6 oz 210 lb 6.4 oz - Constitutional no acute distress - *Routine Respiratory Exam Present: CTA bilaterally - *Routine Cardiovascular Exam Present: RRR - *Routine Abdominal Exam Present: soft, normoactive bowel sounds, tenderness, guarding, firm, rigid. Absent: distended Comments: RUQ ttp - *Routine Extremities Exam Present: full ROM, pulses intact. Absent: edema, calf tenderness - *Routine Neurological Exam Present: alert, oriented X3, moving all extremities, normal speech Assessment and Plan (1) Pancreatitis due to biliary obstruction Status: Acute Qualifiers: Chronicity: acute Acute pancreatitis complication: no infection or necrosis Qualified Code(s): K85.10 - Biliary acute pancreatitis without necrosis or infection Category: Medical Code(s): K85.90 - Acute pancreatitis without necrosis or infection, unspecified; K83.1 - Obstruction of bile duct (2) Cholelithiasis Status: Acute Category: Medical Code(s): K80.20 - Calculus of gallbladder without cholecystitis without obstruction (3) Arthritis Status: Chronic Category: Medical Code(s): M19.90 - Unspecified osteoarthritis, unspecified site (4) Hypertension Status: Chronic Category: Medical Code(s): I10 - Essential (primary) hypertension (5) Tobacco use disorder Status: Chronic Category: Medical Code(s): F17.200 - Nicotine dependence, unspecified, uncomplicated (6) Chronic steroid use Status: Acute Category: Medical (7) Wheeze Status: Acute Category: Medical Code(s): R06.2 - Wheezing (8) Gallstone pancreatitis Status: Acute Category: Medical Code(s): K85.10 - Biliary acute pancreatitis without necrosis or infection - Assessment and plan all Dx Assessment and Plan for all problems:: per Dr. Mckeon. <Cal Mckeon - Last Filed: 05/02/20 09:41> Internal Medicine - PN: Subj *Date: 05/02/20 *Time: 09:40 Exam Vital signs and Labs for Last 24 Hours: Temp Pulse Resp BP Pulse Ox 98.3 F 66 20 123/58 L 89 L 05/02/20 08:00 05/02/20 08:00 05/02/20 08:00 05/02/20 08:00 05/02/20 08:00 Laboratory Results - last 24 hr 05/02/20 05:45: WBC 13.3 H D, RBC 4.69, Hgb 13.2, Hct 43.4, MCV 92.4, MCH 28.1, MCHC 30.4 L, RDW 14.9, Plt Co
--- NOTE | 2020-05-02 09:37 | PC.NURSE ---
dr. arevalo at bedside. stated to cancel Dr. Horn consult. spoke with Blaine Hernandez RN in preop and she stated she will let him know.
[2020-05-02 11:38] VITALS: BP 142/76; PULSE 80; RESP 20; TEMP 36.8; O2SAT 92
--- NOTE | 2020-05-02 12:42 | PC.NURSE ---
Patients IV began leaking,once IV was discontinued patient refused to have a new line placed because she is hopefully going home today. Patient has eaten lunch and several cups of coffee. Has no complaints of pain.
[2020-05-02 14:11] VITALS: BP 160/90; PULSE 62; TEMP 36.6
--- NOTE | 2020-05-02 14:11 | P.PN_ITS ---
[facility] Anesthesia Record Part II Discharge Time: 15:55 Destination: floor PACU nurse assessment reviewed?: Yes Patient Condition:: Good Anesthesia Complications:: None Swallowing reflex intact?: Yes Cyanosis?: No Blood Pressure: 160/90 Pulse Rate: 62 Temperature: 97.8 F Mental Status: Alert & Oriented Pain level:: 0 Nausea and/or vomitting:: None Intake, IV Amount: 1,500
--- NOTE | 2020-05-03 05:59 | HMH.DCSUM ---
General - General Admission date:: 04/30/20 Discharge date: 05/02/20 HPI HPI: Ms. Gibson is a 64 year old female with a history of hypertension and arthritis being cared for by a nurse practitioner in [place], [place] who presented to [facility] emergency room with severe right upper quadrant abdominal pain. She stated the pain awakened her about 2 AM. She had associated nausea and minimal vomiting. Her bowels were moving normally. She stated the previous night she had fried potatoes and sausage for dinner. She denied any fever. She described one previous episode of pain back in August at which time the plan was for her to have a cholecystectomy. Covid pandemic did delay the plan and she had not as yet had the surgery. Patient denied any cardiac or respiratory problems although she was smoking a pack and a half of cigarettes a day. She appeared comfortable after receiving morphine and Zofran in the emergency room. Lab results showed a white blood cell count of 8800. Liver function studies were all elevated. Amylase was 696. Right upper quadrant ultrasound revealed gallstones within the fundus but no biliary ductal dilatation. Chest x-ray showed a possible right upper lobe nodule and was otherwise negative. Patient was admitted for further evaluation. The surgeon was consulted. Hospital Course Hospital Course: On admission patient was started on IV fluids at 125 and received morphine for pain and Zofran for nausea. She was also started on Protonix, neb treatments, and home meds. She was seen by surgeon Dr. Boyle implant cholecystectomy with cholangiogram gram once the pancreatitis had resolved. Morning after admission patient felt much better. She had no further vomiting although she had intermittent nausea and frequent belching. She had very little pain. Lipase did improve as did liver function studies. On 04/30/2020 patient had a laparoscopic cholecystectomy. Cholangiogram was not completed secondary to severe inflammatory changes. Patient did well postoperatively. She had the usual postoperative discomfort. She had no nausea or vomiting. Her diet was advanced and she tolerated this well. On 05/02/2020 patient was stable for discharge. She was discharged to home in stable and satisfactory condition. She was restricted with no lifting. She was to follow-up with Dr. Jones on May 14, 2020. Objective Vital signs: Temp Pulse Resp BP Pulse Ox 97.8 F 62 20 160/90 H 92 L 05/02/20 14:11 05/02/20 14:11 05/02/20 11:38 05/02/20 14:11 05/02/20 11:38 Narrative: Exam Vital signs and Labs for Last 24 Hours: Temp Pulse Resp BP Pulse Ox 98.1 F 69 18 113/70 93 L 05/02/20 04:00 05/02/20 04:00 05/02/20 04:00 05/02/20 04:00 05/02/20 04:00 Laboratory Results - last 24 hr 05/02/20 05:45: WBC 13.3 H D, RBC 4.69, Hgb 13.2, Hct 43.4, MCV 92.4, MCH 28.1, MCHC 30.4 L, RDW 14.9, Plt Count 191, MPV 9.0, Neut % (Auto) 89.6 H, Lymph % (Auto) 6.5 L, [place] % (Auto) 3.6, Eos % (Auto) 0.1, Baso % (Auto) 0.2, Neut # (Auto) 11.9 H, Lymph # (Auto) 0.9, [place] # (Auto) 0.5, Eos # (Auto) 0.0, Baso # (Auto) 0.0, Total Counted 100, Neutrophils % (Manual) 85 H, Band Neutrophils % 3.0, Lymphocytes % (Manual) 8 L, Monocytes % (Manual) 4, Platelet Estimate Normal, Hypochromasia 1+ 05/02/20 05:45: Sodium 139, Potassium 4.6, Chloride 103, Carbon Dioxide 30, Anion Gap 10.6, BUN 18 H, Creatinine 1.10 H, Estimated Creat Clear 78, Estimated GFR 50 L, Est GFR ( Amer) 61 D, Glucose 129 H, Calcium 9.1, Total Bilirubin 0.5, AST 71 H D, ALT 156 H, Alkaline Phosphatase 148 H, Total Protein 6.5, Albumin 3.6, Globulin 2.9, Albumin/Globulin Ratio 1.2 05/02/20 06:45: Amylase 48, Lipase 103 I & O for Last 24 hours: Intake & Output 04/29/20 04/30/20 05/01/20 05/02/20 11:59 11:59 11:59 11:59 Intake Total 782 / 782 2640 / 2640 Balance 782 / 782 2640 / 2640 Weight 210 lb 208 lb 6 oz
== END 2020-05-02 14:49 | disposition home or self-care (01) | DRG 417 ==
LOC: ER 10:24 → 2ND 12:03
PROVIDERS: Surgery; Admitting Provider Family Medicine; Emergency Provider Emergency Medicine; PCP Physician Assistant; Visit Provider Family Medicine
PROC: 0FT44ZZ Resection of Gallbladder, Percutaneous Endoscopic Approach (ICD-10-PCS; principal; 2020-05-01 12:30)
DX: K80.19 Calculus of gallbladder with other cholecystitis with obstruction (principal); K85.10 Biliary acute pancreatitis without necrosis or infection; Z72.0 Tobacco use; E03.9 Hypothyroidism, unspecified; I10 Essential (primary) hypertension; M19.90 Unspecified osteoarthritis, unspecified site
CPT/HCPCS: 47562; 71045; 76705; 80053; 82150; 83690; 84484; 85007; 85025; 86328; 88304; 93005; 94761; 96374; 96375; 99284; J2405; J2710

== ENCOUNTER → 2020-05-28 09:01 | Outpatient (CLI) | payer MEDICARE, SELFPAY ==
--- NOTE | 2020-05-28 09:08 | XR_ITS ---
PROCEDURE: XR CHEST 2V CLINICAL HISTORY: ABN CXR Follow-up chest x-ray, smoker COMPARISON: CR XR CHEST PORTABLE from 04/30/2020 FINDINGS: The cardiomediastinal silhouette and pulmonary vascularity are within normal limits. No lobar consolidation or collapse is evident. Minimal atelectatic changes are present in the left lung base. Previously noted nodular opacity in the right perihilar region is somewhat less prominent on today's exam.. No acute bony abnormalities. IMPRESSION: No acute finding. Right upper lobe nodular opacity somewhat less apparent and in part may be due to overlying summation density Dictated by: Zaid Rivas MD 05/28/2020 15:21 Zaid Rivas MD in [place] 05/28/2020 15:21
== END ==
PROVIDERS: PCP Physician Assistant; Visit Provider Physician Assistant
DX: R93.89 Abnormal findings on diagnostic imaging of other specified body structures (principal)
CPT/HCPCS: 71046

== ENCOUNTER → 2020-09-03 09:42 | Outpatient (CLI) | payer MEDICARE, SELFPAY ==
[2020-09-03 10:03] LABS: Basophils # 0.1 K/mm3 (0-0.2); Basophils % 0.9 % (0.1-2.0); Eosinophils # 0.3 K/mm3 (0.0-0.4); Hematocrit 46.9 % (37.0-47.0); Hemoglobin 14.7 g/dL (12.2-16.2); Lymphocytes # 2.7 K/mm3 (0.7-4.5); Lymphocytes % 27.4 % (10-50); Mean Corpuscular HGB Conc 31.4 g/dL (31.8-35.4); Mean Corpuscular Hemoglobin 27.8 pg (27.0-31.2); Mean Corpuscular Volume 88.8 fl (81-99); Mean Platelet Volume 8.5 fl (7.4-10.4); Monocytes # 0.5 K/mm3 (0.1-1.0); Monocytes % 4.7 % (1.7-9.3); Neutrophils # 6.3 K/mm3 (1.8-7.8); Neutrophils % 64.1 % (37.0-80.0); Platelet Count 261 K/mm3 (142-424); Red Blood Count 5.29 M/mm3 (4.20-5.40); Red Cell Distribution Width 14.5 % (11.5-17.5); White Blood Count 9.9 K/mm3 (4.8-10.8)
[2020-09-03 10:29] LABS: Chloride 106 mmol/L (98-107); Potassium 3.9 mmoL/L (3.5-5.1); Sodium 140 mmol/L (136-145)
[2020-09-03 10:32] LABS: Alanine Aminotransferase 18 U/L (12-78); Alkaline Phosphatase 96 U/L (38-126); Amylase 36 U/L (30-110); Anion Gap 7.9 mEq/L (5-15); Aspartate Amino Transferase 18 U/L (14-36); Bilirubin,Total 0.4 mg/dl (0.2-1.3); Blood Urea Nitrogen 24 mg/dl (7-17); Calcium 9.8 mg/dl (8.4-10.2); Carbon Dioxide 30 mmol/L (22.0-30.0); Estimated Glomerular Filt Rate 38 ml/min (>60); GFR (African American) 46 ML/MIN (>60); Glucose 147 mg/dl (74-100); Lipase 48 U/L (23-300)
[2020-09-03 10:33] LABS: Albumin/Globulin Ratio 1.4 (1.1-1.8); Globulin 2.9 g/dL (1.3-3.2); Total Protein,Serum 6.9 g/dl (6.3-8.2)
== END ==
PROVIDERS: Visit Provider Surgery
DX: R10.9 Unspecified abdominal pain (principal)
CPT/HCPCS: 36415; 80053; 82150; 83690; 85025

== ENCOUNTER → 2020-09-11 10:06 | Outpatient (CLI) | payer MEDICARE, BC, SELFPAY ==
--- NOTE | 2020-09-11 10:06 | CT_ITS ---
PROCEDURE: CT ABDOMEN PELVIS W CON CLINICAL INDICATION: Luq abdominal pain Worse over the last 2 months COMPARISON: No exams were available for comparison TECHNIQUE: IV Contrast: 75ML Isovue 370 Oral Contrast None Axial images obtained with sagittal and coronal reformats. All CT scans at the facility use one or more dose reduction, viz: automated exposure control, ma/kV adjustment per patient size (including targeted exams where dose is matched to indication, i.e. head), or iterative reconstruction technique. FINDINGS: LOWER THORAX: No acute finding ABDOMEN & PELVIS: The liver, spleen, adrenal glands, pancreas, and kidneys have an unremarkable appearance. No renal or ureteral calculi. No hydronephrosis. No intestinal obstruction or free air. There is a mild amount of retained colonic feces. No evidence of appendicitis or diverticulitis. There are bilateral tubal ligation clips present. There is colonic diverticulosis but no evidence of diverticulitis. There are mild degenerative changes in the lumbar spine and hips with subcortical cystic changes of the left femoral head. IMPRESSION: No acute finding. Mild amount of retained colonic feces Dictated by: Zaid Rivas MD 09/14/2020 10:59 Zaid Rivas MD in [place] 09/14/2020 10:59
== END ==
PROVIDERS: PCP Physician Assistant; Visit Provider Surgery
DX: R10.9 Unspecified abdominal pain (principal)
CPT/HCPCS: 74177; Q9967

== ENCOUNTER → 2020-10-21 08:29 | Outpatient (POV) | payer MEDICARE, OTHER, SELFPAY | PROVIDERS: Visit Provider Dermatology | DX: Z00.00 Encounter for general adult medical examination without abnormal findings (principal) ==

== ENCOUNTER 2023-06-09 22:00 | Emergency (ER) | payer MEDICARE, BC, SELFPAY ==
[2023-06-09 22:01] VITALS: BP 110/76; PULSE 93; RESP 19; TEMP 36.7; O2SAT 92; BMI 32.9
--- NOTE | 2023-06-09 22:12 | XR_ITS ---
PROCEDURE INFORMATION: Exam: XR Chest Exam date and time: 06/09/2023 10:23 PM Age: 67 years old Clinical indication: Cough and other: Weakness, n/v; Additional info: Fall TECHNIQUE: Imaging protocol: Radiologic exam of the chest. Views: 1 view. COMPARISON: CR XR CHEST 2V 05/28/2020 9:36 AM FINDINGS: Lungs: No evidence of acute pulmonary disease or infiltrates; lung benitez appear clear. Pleural spaces: No evidence of pleural effusion, pneumothorax, or pleural thickening in the visualized pleural spaces. Heart/Mediastinum: No evidence of mediastinal widening or cardiac silhouette enlargement; the mediastinum and heart appear within normal limits for contour and size. Bones/joints: No evidence of acute osseous abnormalities within the visualized portions of the thoracic spine and ribs. Osseous structures appear appropriate for patient age. IMPRESSION: Negative study. No acute cardiopulmonary abnormalities identified.
--- NOTE | 2023-06-09 22:13 | HMH.EDGENADL ---
Discharge Plan Disposition Patient Disposition: Home, Self-Care Condition: Good Chief Complaint: Upper Respiratory Infection Prescriptions Prescriptions: No Action esomeprazole magnesium [Nexium] 40 mg capsule,delayed release(DR/EC) 40 mg PO DAILY prednisone 10 MG tablet 5 mg PO DAILY levothyroxine 50 MCG tablet 50 mcg PO DAILY atenolol 50 MG tablet 50 mg PO DAILY duloxetine 60 MG capsule,delayed release(DR/EC) 60 mg PO DAILY hydrocodone-acetaminophen 1 EACH tablet 1 tab PO TIDP PRN (Reason: PAIN) montelukast 10 MG tablet 10 mg PO PM omega-3 fatty acids-fish oil 1 EACH capsule,delayed release(DR/EC) 1 each PO DAILY fluticasone propionate 16 GM spray,suspension 2 sprays NS DAILY Referrals Follow up/Referrals: Tereso Castañeda APRN [Primary Care Provider] - See instructions Clinical Impressions Clinical Impression: Acute viral syndrome Instructions Patient Instructions: DI for Viral Syndrome Discharge ED Provider: Rachel Bolden General Adult HPI General Chief complaint: Upper Respiratory Infection Stated complaint: V/D, weak, cough Time Seen by Provider: 06/09/23 22:07 History of Present Illness HPI narrative: Patient has a PMHx significant for hypothyroidism, CKD, hypertension, back pain, COPD who presents to the ED with multiple complaints. Patient notes that last week, she had a COVID exposure over the past 24 hours, she has been having progressively worsening fevers, weakness and generalized malaise. Patient also had episodes of nausea vomiting and diarrhea today all nonbloody. Patient was brought into the ED today for evaluation. Patient denies any shortness of breath, chest pain. Related Data Home Medications Medication Instructions Recorded Confirmed atenolol 50 mg tablet 50 mg PO DAILY Hypertension 10/21/18 09/17/20 duloxetine 60 mg capsule,delayed 60 mg PO DAILY MOOD 10/21/18 09/17/20 release levothyroxine 50 mcg tablet 50 mcg PO DAILY thyroid 10/21/18 09/17/20 prednisone 10 mg tablet 5 mg PO DAILY Arthritis 10/21/18 09/17/20 esomeprazole magnesium 40 mg 40 mg PO DAILY GERD 10/27/18 09/17/20 capsule,delayed release (Nexium) hydrocodone 7.5 mg-acetaminophen 1 tab PO TIDP PRN PAIN 04/30/20 09/17/20 325 mg tablet montelukast 10 mg tablet 10 mg PO PM Allergy symptoms 04/30/20 09/17/20 omega-3 fatty acids-fish oil 684 1 each PO DAILY Supplement 04/30/20 09/17/20 mg-1,200 mg capsule,delayed release fluticasone propionate 50 2 sprays NS DAILY Allergy symptoms 05/01/20 09/17/20 mcg/actuation nasal spray,suspension Allergies Allergy/AdvReac Type Severity Reaction Status Date / Time No Known Drug Allergies Allergy Unknown Verified 09/17/20 10:04 [NO KNOWN DRUG ALLERGIES] [facility] Disclaimer: The information contained in this section may have been updated after the patient was seen, as this information can be updated by other users. Social History Smoking Status: Current every day smoker tobacco type: cigarettes packs per day: 1 alcohol intake: never substance use type: denies use current occupational status: disabled Travel in the last 8 weeks: None household members: family housing: house ROS Obtained: Yes All systems reviewed & no additional complaints except as documented Physical Exam General General appearance: alert and in no apparent distress Head Head exam: atraumatic, normocephalic and normal inspection Eye Eye exam: Present normal appearance, PERRL and EOMI; Absent scleral icterus or nystagmus ENT ENT exam: Present normal exam, mucous membranes moist and normal external ear exam Neck Neck exam: Present normal inspection, full ROM and trachea midline Chest Chest inspection: Present normal inspection and symmetric chest wall rise; Absent tenderness Respiratory Respiratory exam: Present normal lung sounds bilaterally and wheezes; Absent respiratory distress or accessory
[2023-06-09 22:18] LABS: Coronavirus 19, PCR Not Detected (NotDetected); Influenza A, PCR Not Detected (NotDetected); Influenza B, PCR Not Detected (NotDetected)
[2023-06-09 22:31] VITALS: BP 106/65; PULSE 89; RESP 18; O2SAT 98
[2023-06-09 22:39] VITALS: PULSE 90
[2023-06-09 23:00] VITALS: BP 103/65; PULSE 64; RESP 16; O2SAT 98
[2023-06-09 23:05] VITALS: BP 103/65; PULSE 98; RESP 16; TEMP 36.6; O2SAT 94
== END 2023-06-09 23:16 | disposition home or self-care (01) ==
PROVIDERS: Emergency Provider Emergency Medicine; PCP Nurse Practitioner Family
DX: R11.2 Nausea with vomiting, unspecified (principal); R50.9 Fever, unspecified; R05.9 Cough, unspecified; R53.1 Weakness; R53.81 Other malaise; B34.9 Viral infection, unspecified; N18.9 Chronic kidney disease, unspecified; E03.9 Hypothyroidism, unspecified; I12.9 Hypertensive chronic kidney disease with stage 1 through stage 4 chronic kidney disease, or unspecified chronic kidney disease; J44.9 Chronic obstructive pulmonary disease, unspecified; F17.210 Nicotine dependence, cigarettes, uncomplicated; Z20.822 Contact with and (suspected) exposure to COVID-19
CPT/HCPCS: 71045; 87636

== ENCOUNTER 2023-06-11 09:48 | Inpatient (IN) | payer MEDICARE, BC, SELFPAY ==
[2023-06-11] VITALS (9 sets, daily range): BP systolic 99–132; BP diastolic 63–84; PULSE 67–130; RESP 14–22; TEMP 36.6–38.5; O2SAT 92–96; BMI 28.1; BMI 32.1
--- NOTE | 2023-06-11 09:55 | ECG_ITS ---
APPROVED REPORT Exam: Resting ECG HR:128 bpm ECG Measurements Heart Rate 128 AXES MN 104 P 60 QRSd 77 QRS 65 QT 292 T 70 QTc 368 Conclusion SINUS TACHYCARDIA WITH SHORT MN INTERVAL MODERATE ST DEPRESSION [0.05+ mV ST DEPRESSION] ABNORMAL ECG UNCONFIRMED REPORT Electronically signed by : Kishor Khan MD 06/13/2023 17:42:21
--- NOTE | 2023-06-11 09:58 | PC.NURSE ---
Dr. Moeller at for pt eval
--- NOTE | 2023-06-11 10:03 | XR_ITS ---
PROCEDURE INFORMATION: Exam: XR Chest Exam date and time: 06/11/2023 10:19 AM Age: 67 years old Clinical indication: Shortness of breath; Additional info: SOA, productive cough TECHNIQUE: Imaging protocol: Radiologic exam of the chest. Views: 2 views. COMPARISON: CR XR CHEST PORTABLE 06/09/2023 10:23 PM FINDINGS: Lungs: There is subsegmental atelectasis at the left base. There is a vague questionable nodule in the right upper lobe measuring [address] of the thorax to further assess. Pleural spaces: Unremarkable. No pleural effusion. No pneumothorax. Heart/Mediastinum: Unremarkable. No cardiomegaly. Bones/joints: Unremarkable. IMPRESSION: Query nodular disease in the right upper lobe. Suggest noncontrast CT of the thorax further cells. Basilar subsegmental atelectasis on the left.
--- NOTE | 2023-06-11 10:13 | HMH.EDGENADL ---
Discharge Plan Disposition Patient Disposition: Admitted Prescriptions Prescriptions: No Action levothyroxine 50 MCG tablet 75 mcg PO DAILY atenolol 50 MG tablet 25 mg PO DAILY duloxetine 60 MG capsule,delayed release(DR/EC) 60 mg PO DAILY methocarbamol 500 mg tablet 500 mg PO DAILY Patient Comments: TAKE 1 TABLET BY MOUTH TWICE DAILY FOR 14 DAYS NEEDED Rx Instructions: Entered in error methotrexate sodium 2.5 mg tablet 2.5 mg PO WEEKLY Patient Comments: TAKE 3 TABLETS BY MOUTH EVERY WEEK Rx Instructions: 3x a week atorvastatin 20 mg tablet 20 mg PO DAILY Patient Comments: TAKE 1 TABLET BY MOUTH EVERY DAY cetirizine 10 mg Tablet 10 mg PO DAILY esomeprazole magnesium [Nexium] 40 mg Capsule,Delayed Release(Dr/Ec) 40 mg PO DAILY folic acid 1 mg tablet 1 mg PO DAILY Patient Comments: TAKE ONE TABLET BY MOUTH EVERY DAY Farxiga 5 mg Tablet 5 mg PO DAILY prednisone 5 mg tablet 5 mg PO DAILY aspirin 81 mg Tablet 81 mg PO DAILY olmesartan 40 mg tablet 40 mg PO DAILY Patient Comments: TAKE 1 TABLET BY MOUTH EVERY DAY olmesartan 40 mg tablet 40 mg PO DAILY Rx Instructions: Entered in error Ozempic 1 mg/dose (4 mg/3 mL) pen injector 1 mg SQ WEEKLY Rx Instructions: .25 1 a week hydrocodone-acetaminophen 1 EACH tablet 1 tab PO TIDP PRN (Reason: PAIN) montelukast 10 MG tablet 10 mg PO PM Referrals Follow up/Referrals: Tereso Castañeda APRN [Primary Care Provider] - See instructions Clinical Impressions Clinical Impression: Immunocompromised state, Acute hyponatremia, Steroid-induced adrenal suppression Pneumonia Qualifiers: Pneumonia type: due to unspecified organism Laterality: right Lung location: unspecified part of lung Qualified Code(s): J18.9 - Pneumonia, unspecified organism Sepsis Qualifiers: Sepsis type: sepsis due to unspecified organism Sepsis acute organ dysfunction status: unspecified Qualified Code(s): A41.9 - Sepsis, unspecified organism Discharge ED Provider: Marcelino Moeller Adult HPI General Chief complaint: Shortness of Breath/Dyspnea Stated complaint: oxygen level low, congestion,weakness,headache Time Seen by Provider: 06/11/23 09:51 Mode of Arrival: Wheelchair Source of Information: Patient Limitations: No Limitations Description of Symptoms (Recalled from ER Triage Doc. by RN): pt states she has been sick since tuesday and was seen in the ER on 06/09/23 where she was dx with a viral infection, reports son, coughing up yellow sputum, blood in sputum, and fever, also states she has been weak and had epigastric abdominal pain that she explains as sharp, reports one episode of vomiting that occurred last night History of Present Illness HPI narrative: 67-year-old female, history complicated by rheumatoid arthritis on immunosuppression, presents with worsening shortness of breath. Reportedly tachycardic and hypoxic at home. Patient has had productive sputum for the last couple of days. Febrile at home to 103. She was seen here couple of days ago and was diagnosed with a viral syndrome after a clear chest x-ray. But symptoms have continued to worsen at home. Reports nonspecific abdominal pain. Per son, patient has been confused recently. She is a prior smoker. Related Data Home Medications Medication Instructions Recorded Confirmed atenolol 50 mg tablet 25 mg PO DAILY Hypertension 10/21/18 06/11/23 duloxetine 60 mg capsule,delayed 60 mg PO DAILY MOOD 10/21/18 06/11/23 release levothyroxine 50 mcg tablet 75 mcg PO DAILY thyroid 10/21/18 06/11/23 hydrocodone 7.5 mg-acetaminophen 1 tab PO TIDP PRN PAIN 04/30/20 06/11/23 325 mg tablet montelukast 10 mg tablet 10 mg PO PM Allergy symptoms 04/30/20 06/11/23 aspirin 81 mg tablet 81 mg PO DAILY 06/11/23 06/11/23 atorvastatin 20 mg tablet 20 mg PO DAILY 06/11/23
[2023-06-11 10:18] LABS: Basophils % 0.2 % (0.1-2.0); Eosinophils # 0.3 K/mm3 (0.0-0.4); Eosinophils % 2.2 % (0.1-12.0); Hematocrit 46.2 % (37.0-47.0); Hemoglobin 15.7 g/dL (12.2-16.2); Lymphocytes # 0.8 K/mm3 (0.7-4.5); Mean Corpuscular HGB Conc 33.9 g/dL (31.8-35.4); Mean Corpuscular Hemoglobin 31.9 pg (27.0-31.2); Mean Corpuscular Volume 94.2 fl (81-99); Mean Platelet Volume 9.2 fl (7.4-10.4); Monocytes # 0.6 K/mm3 (0.1-1.0); Monocytes % 5.6 % (1.7-9.3); Neutrophils # 9.5 K/mm3 (1.8-7.8); Neutrophils % 84.9 % (37.0-80.0); Platelet Count 196 K/mm3 (142-424); Red Blood Count 4.91 M/mm3 (4.20-5.40); Red Cell Distribution Width 15.8 % (11.5-17.5); White Blood Count 11.1 K/mm3 (4.8-10.8)
[2023-06-11 10:23] LABS: Chloride 98 mmol/L (98-107); Potassium 4.1 mmoL/L (3.5-5.1); Sodium 129 mmol/L (136-145)
[2023-06-11 10:23] LABS: Coronavirus 19, PCR Not Detected (NotDetected); Influenza A, PCR Not Detected (NotDetected); Influenza B, PCR Not Detected (NotDetected)
[2023-06-11 10:25] LABS: Alanine Aminotransferase 35 U/L (12-78); Aspartate Amino Transferase 35 U/L (14-36); Blood Urea Nitrogen 20 mg/dl (7-17); Creatinine Clearance Estimated 47 mL/min (50-200); Estimated Glomerular Filt Rate 35 ml/min (>60); GFR (African American) 42 ML/MIN (>60)
[2023-06-11 10:26] LABS: Albumin Level 3.9 g/dl (3.5-5.0); Albumin/Globulin Ratio 1.1 (1.1-1.8); Alkaline Phosphatase 121 U/L (38-126); Anion Gap 12.1 mEq/L (5-15); Bilirubin,Total 0.8 mg/dl (0.2-1.3); Calcium 8.7 mg/dl (8.4-10.2); Carbon Dioxide 23 mmol/L (22.0-30.0); Globulin 3.6 g/dL (1.3-3.2); Glucose 127 mg/dl (74-100); Lipase 56 U/L (23-300); Total Protein,Serum 7.5 g/dl (6.3-8.2)
[2023-06-11 10:27] LABS: Lactic Acid 1.2 mmol/L (0.7-2.1)
--- NOTE | 2023-06-11 10:27 | PC.NURSE ---
pt transported to radiology via wheelchair
--- NOTE | 2023-06-11 10:28 | PC.NURSE ---
Pt gone to RAD via wheelchair
--- NOTE | 2023-06-11 10:32 | PC.NURSE ---
PT RETURNED FROM RADIOLOGY
--- NOTE | 2023-06-11 10:33 | EXP.PHA.CONS ---
Pharmacy Consult Date: 06/11/23 Time: 10:33 Referring provider: DR. YBARRA Reason for Consult:: VANCOMYCIN DOSING Allergies Allergy/AdvReac Type Severity Reaction Status Date / Time No Known Allergies Allergy Unverified 06/11/23 10:14 Home Medications Medication Instructions Recorded Confirmed Type atenolol 50 mg tablet 25 mg PO DAILY Hypertension 10/21/18 06/11/23 History duloxetine 60 mg capsule,delayed 60 mg PO DAILY MOOD 10/21/18 06/11/23 History release levothyroxine 50 mcg tablet 75 mcg PO DAILY thyroid 10/21/18 06/11/23 History hydrocodone 7.5 mg-acetaminophen 1 tab PO TIDP PRN PAIN 04/30/20 06/11/23 History 325 mg tablet montelukast 10 mg tablet 10 mg PO PM Allergy symptoms 04/30/20 06/11/23 History aspirin 81 mg tablet 81 mg PO DAILY 06/11/23 06/11/23 History atorvastatin 20 mg tablet 20 mg PO DAILY 06/11/23 06/11/23 History cetirizine 10 mg tablet 10 mg PO DAILY 06/11/23 06/11/23 History dapagliflozin propanediol 5 mg 5 mg PO DAILY 06/11/23 06/11/23 History tablet (Farxiga) esomeprazole magnesium 40 mg 40 mg PO DAILY 06/11/23 06/11/23 History capsule,delayed release (Nexium) folic acid 1 mg tablet 1 mg PO DAILY 06/11/23 06/11/23 History methocarbamol 500 mg tablet 500 mg PO DAILY 06/11/23 06/11/23 History methotrexate sodium 2.5 mg tablet 2.5 mg PO WEEKLY 06/11/23 06/11/23 History olmesartan 40 mg tablet 40 mg PO DAILY 06/11/23 06/11/23 History olmesartan 40 mg tablet 40 mg PO DAILY 06/11/23 06/11/23 History prednisone 5 mg tablet 5 mg PO DAILY 06/11/23 06/11/23 History semaglutide 1 mg/dose (4 mg/3 mL) 1 mg SQ WEEKLY 06/11/23 06/11/23 History subcutaneous pen injector (Ozempic) New Prescriptions to Start Prescriptions: Height: 1.7 m Weight: 81.647 kg Laboratory Results:: Laboratory Results - last 24 hr 12/02/23 10:05: WBC 11.1 H, RBC 4.91, Hgb 15.7, Hct 46.2, MCV 94.2, MCH 31.9 H, MCHC 33.9, RDW 15.8, Plt Count 196, MPV 9.2, Neut % (Auto) 84.9 H, Lymph % (Auto) 7.0 L, [place] % (Auto) 5.6, Eos % (Auto) 2.2, Baso % (Auto) 0.2, Neut # (Auto) 9.5 H, Lymph # (Auto) 0.8, [place] # (Auto) 0.6, Eos # (Auto) 0.3, Baso # (Auto) 0.0, Sodium 129 L, Potassium 4.1, Chloride 98, Carbon Dioxide 23, Anion Gap 12.1, BUN 20 H, Creatinine 1.50 H, Estimated Creat Clear 47, Estimated GFR 35 L, Est GFR ( Amer) 42 L, Glucose 127 H, Lactate 1.2, Calcium 8.7, Total Bilirubin 0.8, AST 35, ALT 35, Alkaline Phosphatase 121, Total Protein 7.5, Albumin 3.9, Globulin 3.6 H, Albumin/Globulin Ratio 1.1, Lipase 56 Assessment and Plan Assessment and plan all Dx Assessment and Plan for all problems:: Pharmacokinetic dosing service Objective: Patient: Floor: Age: 67 yo Serum creatinine: 1.50 mg/dL Height: 66.9 Inches Weight (kg): 81.6 Assessment: IBW (kg): 61.37 Dosing wt(kg): 81.6 Estimated Creatinine clearance (ml/min): 35.3 CRCL method: Cockcroft and Gault using ibw(default). Drug selected: Vancomycin Loading dose (mg): Vd (liters): 65.3 (factor used: 0.8 L/kg) Pavel (hr-1): 0.034 Half life (hrs): 20.39 CLvanco=?? 2.220 L/hr Recommended dose: 1250 mg Interval: 24 hrs Infusion time (hrs): 2.0 Predicted peak (mcg/mL): 33.2 Predicted trough (mcg/mL): 15.71 Total body weight is being used for vancomycin dosing. Recommendations: Give Vancomycin 1250 mg q 24 hrs with an expected Cpeak of 33.2 mcg/ml and an expected Ctrough of 15.71 mcg/ml. Patient received one time dose of Vancomycin 1,500mg in ER. AUC 0-24 /MARGARITA Data: MARGARITA 0.5 mcg/mL:?? AUC/MARGARITA:? 1126.1 MARGARITA 1.0 mcg/mL:?? AUC/MARGARITA:? 563.1 --------- MARGARITA 1.5 mcg/mL:?? AUC/MARGARITA:? 375.4 MARGARITA 2.0 mcg/mL:?? AUC/MARGARITA:? 281.5 Renal dosing of other antibiotics (review renal dosing of other medications and list guidelines here): Thank
[2023-06-11 10:38] LABS: Troponin I 0.02 ng/ml (0.00-0.034)
--- NOTE | 2023-06-11 10:40 | PC.NURSE ---
er attempted to call hospitalist about admitting pt and hospitalist didn't want to discuss pt at this time. will call back shortly.
--- NOTE | 2023-06-11 10:49 | PC.NURSE ---
DR YBARRA AT BEDSIDE TO UPDATE PT ON POC
--- NOTE | 2023-06-11 11:10 | PC.NURSE ---
pt to the bathroom, will attempt to give urine sample
--- NOTE | 2023-06-11 11:12 | HMH.PHAINT1 ---
Pharmacy Intervention Comments: MEDICATION RECONCILIATION COMPLETED ON PATIENT USING EXTERNAL FILL HISTORY FROM PHARMACY. -[facility], JASOND
--- NOTE | 2023-06-11 11:17 | CT_ITS ---
PROCEDURE INFORMATION: Exam: CT Chest Without Contrast; Diagnostic Exam date and time: 06/11/2023 11:24 AM Age: 67 years old Clinical indication: Shortness of breath; Additional info: SOB TECHNIQUE: Imaging protocol: Diagnostic computed tomography of the chest without contrast. Radiation optimization: All CT scans at this facility use at least one of these dose optimization techniques: automated exposure control; mA and/or kV adjustment per patient size (includes targeted exams where dose is matched to clinical indication); or iterative reconstruction. REPORTING DATA: Count of CT and Cardiac NM exams in prior 12 months: This patient has received 0 known CTs and 0 known cardiac nuclear medicine studies in the 12 months prior to the current study. COMPARISON: CR XR CHEST 2V 06/11/2023 10:19 AM FINDINGS: Lungs: Nodular airspace disease in the right upper lobe, consistent with pneumonia. Mild-moderate centrilobular emphysema in the upper lobes. Pleural spaces: Unremarkable. No pneumothorax. No pleural effusion. Heart: Unremarkable. No cardiomegaly. No pericardial effusion. Coronary arteries: Coronary artery atherosclerosis. Lymph nodes: Calcified mediastinal granulomata. No enlarged lymph nodes. Vasculature: Aortic atherosclerosis. Gallbladder and bile ducts: Cholecystectomy. Kidneys and ureters: Nonspecific stranding around the kidneys. Bones/joints: Mild spondylosis of the spine. Soft tissues: Unremarkable. IMPRESSION: 1. Nodular airspace disease in the right upper lobe, consistent with pneumonia. 2. Mild-moderate centrilobular emphysema in the upper lobes. 3. Atherosclerosis, including the coronary arteries. 4. Nonspecific stranding around the kidneys, which can be seen with medical renal disease. 5. Additional chronic/nonemergent findings as detailed above. COMMENTS: In the absence of a history or active diagnosis of lung cancer, it is recommended that this patient with emphysema be evaluated for enrollment in a low dose CT lung cancer screening program.
--- NOTE | 2023-06-11 11:18 | PC.NURSE ---
HOSPITALIST AT BEDSIDE
[2023-06-11 11:23] LABS: Microscopic, Urine URINE MICROSCOPIC (MICROSCOPIC)
--- NOTE | 2023-06-11 11:23 | PC.NURSE ---
pt transported to radiology via wheelchair.
--- NOTE | 2023-06-11 11:23 | PC.NURSE ---
house aware of admission
--- NOTE | 2023-06-11 11:24 | PC.NURSE ---
VEHICLE SERVICE ATTENDANT NOTIFIED OF ADMISSION
[2023-06-11 11:29] LABS: Appearance,Urine CLEAR (Clear); Blood, Urine 1+ (Negative); Color,Urine YELLOW (Yellow); Glucose,Urine (UA) Negative (Negative); Ketones,Urine TRACE (Negative); Leukocyte Esterase,Urine Negative (Negative); Nitrate,Urine Negative (Negative); Protein,Urine 2+ (Negative)
--- NOTE | 2023-06-11 11:29 | PC.NURSE ---
pt returned from radiology.
[2023-06-11 11:35] LABS: Bacteria,Urine 1+ /lpf; Bilirubin,Urine 1+ (Negative); RBC,Urine Occasional #/hpf (0-3); WBC,Urine Occasional #/hpf (0-3)
--- NOTE | 2023-06-11 11:36 | PC.NURSE ---
called report to Linda ERIC
[2023-06-11 13:46] LABS: Troponin I 0.02 ng/ml (0.00-0.034)
--- NOTE | 2023-06-11 17:40 | EXP.HP ---
History of Present Illness *Admission Date: 06/11/23 *Reason for visit:: SOB *History of present illness: Patient is a 67-year-old female with past medical history of rheumatoid arthritis who presents to the hospital due to shortness of breath. According to patient she has been feeling sick for the past 1 week, she has been worsening she has cough productive of phlegm, she was also noticed to have fever at home. She otherwise denied abdominal pain chest pain nausea vomiting. Patient otherwise denied dysuria diarrhea constipation. [facility] Disclaimer: The information contained in this section may have been updated after the patient was seen, as this information can be updated by other users. Social History Smoking Status: Current every day smoker tobacco type: cigarettes packs per day: 1 alcohol intake: never substance use type: denies use current occupational status: disabled Travel in the last 8 weeks: None household members: family housing: house Review of Systems Review of Systems Review of systems (narrative): as per [facility] Meds Home Medications and Allergies Home Medications Medication Instructions Recorded Confirmed Type duloxetine 60 mg capsule,delayed 60 mg PO DAILY Mood 10/21/18 06/11/23 History release montelukast 10 mg tablet 10 mg PO PM Breathing Problems 04/30/20 06/11/23 History aspirin 81 mg tablet,delayed 81 mg PO DAILY Heart Health 06/11/23 06/11/23 History release atenolol 25 mg tablet 25 mg PO DAILY High Blood Pressure 06/11/23 06/11/23 History atorvastatin 20 mg tablet 20 mg PO DAILY Cholesterol 06/11/23 06/11/23 History cetirizine 10 mg tablet 10 mg PO DAILY Allergy Symptoms 06/11/23 06/11/23 History dapagliflozin propanediol 5 mg 5 mg PO DAILY 06/11/23 06/11/23 History tablet (Farxiga) esomeprazole magnesium 40 mg 40 mg PO DAILY Acid Reflux 06/11/23 06/11/23 History capsule,delayed release (Nexium) folic acid 1 mg tablet 1 mg PO DAILY Supplement 06/11/23 06/11/23 History hydrocodone 7.5 mg-acetaminophen 1 tab PO TIDP PRN Moderate Pain 06/11/23 06/11/23 History 325 mg tablet (Scale Score 5-6) levothyroxine 75 mcg tablet 75 mcg PO DAILY Thyroid 06/11/23 06/11/23 History methotrexate sodium 2.5 mg tablet 7.5 mg PO WEEKLY 06/11/23 06/11/23 History olmesartan 40 mg tablet 40 mg PO DAILY High Blood Pressure 06/11/23 06/11/23 History prednisone 5 mg tablet 5 mg PO DAILY Steroid 06/11/23 06/11/23 History semaglutide 1 mg/dose (4 mg/3 mL) 1 mg SQ WEEKLY 06/11/23 06/11/23 History subcutaneous pen injector (Ozempic) New Prescriptions to Start Prescriptions: Allergies Allergy/AdvReac Type Severity Reaction Status Date / Time No Known Allergies Allergy Unverified 06/11/23 10:14 Exam Data for Last 24 hours Vital signs and Labs for Last 24 Hours: Temp Pulse Resp BP Pulse Ox O2 Del Method 98.7 F 79 22 118/65 92 L Room Air 06/11/23 16:00 06/11/23 16:00 06/11/23 16:00 06/11/23 16:00 06/11/23 16:00 06/11/23 16:31 Laboratory Results - last 24 hr 06/11/23 10:05: WBC 11.1 H, RBC 4.91, Hgb 15.7, Hct 46.2, MCV 94.2, MCH 31.9 H, MCHC 33.9, RDW 15.8, Plt Count 196, MPV 9.2, Neut % (Auto) 84.9 H, Lymph % (Auto) 7.0 L, [place] % (Auto) 5.6, Eos % (Auto) 2.2, Baso % (Auto) 0.2, Neut # (Auto) 9.5 H, Lymph # (Auto) 0.8, [place] # (Auto) 0.6, Eos # (Auto) 0.3, Baso # (Auto) 0.0, Sodium 129 L, Potassium 4.1, Chloride 98, Carbon Dioxide 23, Anion Gap 12.1, BUN 20 H, Creatinine 1.50 H, Estimated Creat Clear 47, Estimated GFR 35 L, Est GFR ( Amer) 42 L, Glucose 127 H, Lactate 1.2, Calcium 8.7, Total Bilirubin 0.8, AST 35, ALT 35, Alkaline Phosphatase 121, Troponin I 0.02, Total Protein 7.5, Albumin 3.9, Globulin 3.6 H, Albumin/Globulin Ratio 1.1, Lipase 56 12/02/23 10:11: SARS-CoV-2 (PCR) Not detected, Influenza A Untype (PCR) Not detected, Influenza Type B (PCR) Not detected 06/11/23 11:20: Urine Color Yellow, Urine Appearance Clear, Urine pH 6.0, Ur Specific Grav
--- NOTE | 2023-06-11 18:44 | PC.NURSE ---
A&OX4. TOLERATING RA WELL. PT HAS HAD NO NEEDS OR C/O NOTED SINCE ARRIVAL TO FLOOR. INTERMITTENT PRODUCTIVE COUGH. LIGHT GREEN SPUTUM COLOR. PT UP INDEPENDENTLY IN ROOM. FAMILY GOING TO BRING HOME MEDS IN THE MORNING. VSS.
[2023-06-12] VITALS (8 sets, daily range): BP systolic 93–107; BP diastolic 54–69; PULSE 50–98; RESP 17–18; TEMP 36.4–36.8; O2SAT 92–97; BMI 33.3
[2023-06-12 07:16] LABS: Chloride 100 mmol/L (98-107); Potassium 3.7 mmoL/L (3.5-5.1); Sodium 132 mmol/L (136-145)
[2023-06-12 07:19] LABS: Anion Gap 10.7 mEq/L (5-15); Blood Urea Nitrogen 29 mg/dl (7-17); Calcium 8.7 mg/dl (8.4-10.2); Carbon Dioxide 25 mmol/L (22.0-30.0); Creatinine Clearance Estimated 47 mL/min (50-200); Estimated Glomerular Filt Rate 35 ml/min (>60); GFR (African American) 42 ML/MIN (>60); Glucose 119 mg/dl (74-100)
[2023-06-12 07:38] LABS: Eosinophils % 0.4 % (0.1-12.0); Mean Platelet Volume 9.2 fl (7.4-10.4); Monocytes # 0.6 K/mm3 (0.1-1.0); Neutrophils % 84.6 % (37.0-80.0)
[2023-06-12 07:42] LABS: Basophils % 0.2 % (0.1-2.0); Hematocrit 40.1 % (37.0-47.0); Lymphocytes % 9.4 % (10-50); Mean Corpuscular HGB Conc 32.7 g/dL (31.8-35.4); Mean Corpuscular Hemoglobin 31.2 pg (27.0-31.2); Mean Corpuscular Volume 95.5 fl (81-99); Monocytes % 5.4 % (1.7-9.3); Platelet Count 182 K/mm3 (142-424); Red Cell Distribution Width 15.8 % (11.5-17.5); White Blood Count 10.6 K/mm3 (4.8-10.8)
[2023-06-12 07:47] LABS: Hemoglobin 13.1 g/dL (12.2-16.2)
--- NOTE | 2023-06-12 14:26 | EXP.PN ---
Subjective *Date: 06/12/23 *Time: 14:26 Interval history: patient was seen and evaluated at the bedside. denies chest pain, shortness of breath, nausea, vomiting, abdominal pain. Patient does not have any complaints at this time. feels better overall Exam Data for Last 24 hours Vital signs and Labs for Last 24 Hours: Temp Pulse Resp BP Pulse Ox O2 Del Method 97.6 F 60 18 107/69 L 97 Room Air 06/12/23 11:48 06/12/23 12:00 06/12/23 11:48 06/12/23 11:48 06/12/23 11:48 06/12/23 12:51 Laboratory Results - last 24 hr 06/12/23 06:18: WBC 10.6, RBC 4.20, Hgb 13.1 D, Hct 40.1, MCV 95.5, MCH 31.2, MCHC 32.7, RDW 15.8, Plt Count 182, MPV 9.2, Neut % (Auto) 84.6 H, Lymph % (Auto) 9.4 L, [place] % (Auto) 5.4, Eos % (Auto) 0.4, Baso % (Auto) 0.2, Neut # (Auto) 9.0 H, Lymph # (Auto) 1.0, [place] # (Auto) 0.6, Eos # (Auto) 0.0, Baso # (Auto) 0.0, Sodium 132 L, Potassium 3.7, Chloride 100, Carbon Dioxide 25, Anion Gap 10.7, BUN 29 H D, Creatinine 1.50 H, Estimated Creat Clear 47, Estimated GFR 35 L, Est GFR ( Amer) 42 L, Glucose 119 H, Calcium 8.7 I & O for Last 24 hours: Intake & Output 06/09/23 06/10/23 06/11/23 06/12/23 23:59 23:59 23:59 23:59 Intake Total 2560 / 2560 870 / 870 Output Total 0 / 0 0 / 0 Balance 2560 / 2560 870 / 870 Weight 79.577 kg 82.129 kg Constitutional Constitutional: no acute distress *Routine HEENT Exam Head: Present normocephalic Eye: Present EOMI and PERRL ENT: Present mucous membranes moist *Routine Neck Exam Neck: Present supple; Absent lymphadenopathy *Routine Respiratory Exam Respiratory: Present CTA bilaterally *Routine Cardiovascular Exam Cardiovascular: Present RRR *Routine Abdominal Exam Abdominal: Present soft and normoactive bowel sounds; Absent tenderness *Routine Extremities Exam Extremities: Absent cyanosis, clubbing or edema *Routine Skin Exam Skin: Present warm; Absent rash *Routine Neurological Exam Neurological: Present alert and oriented X3 Assessment and Plan *Assessment and plan (1) Tobacco use disorder: Status: Chronic Category: Medical Code(s): F17.200 - Nicotine dependence, unspecified, uncomplicated (2) Pneumonia: Status: Acute Qualifiers: Laterality: right Lung location: unspecified part of lung Pneumonia type: due to unspecified organism Qualified Code(s): J18.9 - Pneumonia, unspecified organism Category: Medical Code(s): J18.9 - Pneumonia, unspecified organism (3) Immunocompromised state: Status: Acute Category: Medical Code(s): D84.9 - Immunodeficiency, unspecified (4) COPD (chronic obstructive pulmonary disease): Status: Acute Category: Medical Code(s): J44.9 - Chronic obstructive pulmonary disease, unspecified Plan Patient is a 67-year-old female with past medical history of rheumatoid arthritis who presents to the hospital due to shortness of breath. According to patient she has been feeling sick for the past 1 week, she has been worsening she has cough productive of phlegm, she was also noticed to have fever at home. She otherwise denied abdominal pain chest pain nausea vomiting. Patient otherwise denied dysuria diarrhea constipation. Assessment Right upper lung pneumonia COPD Chronic immunosuppression with methotrexate for rheumatoid arthritis Leukocytosis Active tobacco use CKD stage III Plan Continue vancomycin, zosyn in the immunocomprosed state Check procalcitonin - pending Chest x-ray, CT chest reviewed Resume home aspirin, atenolol, prednisone Check blood cultures - ngtd COVID, rapid flu antigen testing performed and is negative Resume home ASA, statin, atenolol DVT prophylaxis-heparin
[2023-06-12 15:23] LABS: Procalcitonin 0.535 ng/mL (0.0-2.0)
--- NOTE | 2023-06-12 16:34 | PC.NURSE ---
A&OX4. TOLERATING RA WELL. PT HAS BEEN AMBULATORY IN THE ROOM. TOOK A SHOWER THIS SHIFT. DAUGHTER WAS AT BEDSIDE VISITING TODAY. PT COUGH SEEMS BETTER AFTER PRN MED ADMINISTERED. SPUTUM COLLECTED. PT HAS C/O GENERALIZED PAIN X1, TX PER MAR. EFFECTIVENESS NOTED. PT RESTING IN BED AT THIS TIME, VSS.
[2023-06-13] VITALS: BP 112/60; PULSE 50; PULSE 52; RESP 16; TEMP 36.6; O2SAT 94
[2023-06-13 04:00] VITALS: BP 148/73; PULSE 58; PULSE 60; RESP 16; TEMP 36.4; O2SAT 96; BMI 33.3
[2023-06-13 06:55] LABS: Basophils % 0.3 % (0.1-2.0); Eosinophils # 0.3 K/mm3 (0.0-0.4); Eosinophils % 2.8 % (0.1-12.0); Hematocrit 43.1 % (37.0-47.0); Hemoglobin 13.7 g/dL (12.2-16.2); Lymphocytes # 1.6 K/mm3 (0.7-4.5); Lymphocytes % 12.9 % (10-50); Mean Corpuscular HGB Conc 31.8 g/dL (31.8-35.4); Mean Corpuscular Hemoglobin 31.1 pg (27.0-31.2); Mean Corpuscular Volume 97.8 fl (81-99); Mean Platelet Volume 9.2 fl (7.4-10.4); Monocytes # 0.6 K/mm3 (0.1-1.0); Monocytes % 4.6 % (1.7-9.3); Neutrophils # 9.5 K/mm3 (1.8-7.8); Neutrophils % 79.4 % (37.0-80.0); Platelet Count 226 K/mm3 (142-424); Red Cell Distribution Width 15.7 % (11.5-17.5)
[2023-06-13 07:00] LABS: Chloride 103 mmol/L (98-107)
[2023-06-13 07:01] LABS: Potassium 4.2 mmoL/L (3.5-5.1); Sodium 133 mmol/L (136-145)
[2023-06-13 07:03] LABS: Blood Urea Nitrogen 32 mg/dl (7-17); Creatinine Clearance Estimated 47 mL/min (50-200); Estimated Glomerular Filt Rate 35 ml/min (>60); GFR (African American) 42 ML/MIN (>60)
[2023-06-13 07:04] LABS: Anion Gap 7.2 mEq/L (5-15); Carbon Dioxide 27 mmol/L (22.0-30.0); Glucose 101 mg/dl (74-100)
[2023-06-13 08:00] VITALS: BP 117/73; PULSE 65; PULSE 66; RESP 18; TEMP 36.7; O2SAT 96
[2023-06-13 11:11] LABS: Vancomycin,Trough 12.9 ug/mL (5.0-10.0)
--- NOTE | 2023-06-13 11:16 | EXP.DC.SUM ---
General Admission date:: 06/11/23 Discharge date: 06/13/23 HPI HPI HPI: Patient is a 67-year-old female with past medical history of rheumatoid arthritis who presents to the hospital due to shortness of breath. According to patient she has been feeling sick for the past 1 week, she has been worsening she has cough productive of phlegm, she was also noticed to have fever at home. She otherwise denied abdominal pain chest pain nausea vomiting. Patient otherwise denied dysuria diarrhea constipation. Hospital Course Hospital Course Hospital Course: Patient is a 67-year-old female with past medical history of rheumatoid arthritis who presents to the hospital due to shortness of breath. According to patient she has been feeling sick for the past 1 week, she has been worsening she has cough productive of phlegm, she was also noticed to have fever at home. She otherwise denied abdominal pain chest pain nausea vomiting. Patient otherwise denied dysuria diarrhea constipation. Right upper lung pneumonia COPD Chronic immunosuppression with methotrexate for rheumatoid arthritis Leukocytosis Active tobacco use CKD stage III Patient admitted for pneumonia. Imaging reviewed showing on CT a right upper lobe pneumonia. Initiated on broad spectrum antibiotics. Showed clinical improvement during admission. Plan to wean patient to cefdinir and azithromycin to complete antibiotic course. Patient afebrile for over 24 hours. Cultures negative. COVID and flu negative. Continued home medications for chronic conditions other than methotrexate which was held at this time. Stable for discharge home with close follow-up with PCP in the outpatient setting. Hyponatremia improved to 133 by day of discharge. Kidney function stable with creatinine at 1.5. Exam Data for Last 24 hours Vital signs and Labs for Last 24 Hours: Temp Pulse Resp BP Pulse Ox O2 Del Method 98.0 F 66 18 117/73 96 Room Air 06/13/23 08:00 06/13/23 08:00 06/13/23 08:00 06/13/23 08:00 06/13/23 08:00 06/13/23 08:00 Laboratory Results - last 24 hr 06/12/23 06:18: Procalcitonin 0.535 06/13/23 05:55: WBC 12.0 H, RBC 4.40, Hgb 13.7, Hct 43.1, MCV 97.8, MCH 31.1, MCHC 31.8, RDW 15.7, Plt Count 226, MPV 9.2, Neut % (Auto) 79.4, Lymph % (Auto) 12.9, [place] % (Auto) 4.6, Eos % (Auto) 2.8, Baso % (Auto) 0.3, Neut # (Auto) 9.5 H, Lymph # (Auto) 1.6, [place] # (Auto) 0.6, Eos # (Auto) 0.3, Baso # (Auto) 0.0, Sodium 133 L, Potassium 4.2, Chloride 103, Carbon Dioxide 27, Anion Gap 7.2, BUN 32 H, Creatinine 1.50 H, Estimated Creat Clear 47, Estimated GFR 35 L, Est GFR ( Amer) 42 L, Glucose 101 H, Calcium 9.0 06/13/23 10:12: Vancomycin Trough 12.9 H I & O for Last 24 hours: Intake & Output 06/10/23 06/11/23 06/12/23 06/13/23 23:59 23:59 23:59 23:59 Intake Total 2560 / 2560 1610 / 1610 240 / 240 Output Total 0 / 0 0 / 0 0 / 0 Balance 2560 / 2560 1610 / 1610 240 / 240 Weight 79.577 kg 82.129 kg 82.129 kg Constitutional Constitutional: no acute distress, obese, chronically ill appearing and cooperative *Routine HEENT Exam Head: Present normocephalic Eye: Present EOMI and PERRL ENT: Present mucous membranes moist *Routine Neck Exam Neck: Present supple; Absent lymphadenopathy *Routine Respiratory Exam Respiratory: Present CTA bilaterally; Absent rhonchi, wheezes or crackles *Routine Cardiovascular Exam Cardiovascular: Present RRR *Routine Abdominal Exam Abdominal: Present soft and normoactive bowel sounds; Absent tenderness *Routine Extremities Exam Extremities: Absent cyanosis, clubbing or edema *Routine Skin Exam Skin: Present warm; Absent rash *Routine Neurological Exam Neurological: Present alert, oriented X3 and moving all extremities; Absent altered mental status Results Data Completed and Pending Labs on day of discharge: Labs from last 24 hours 06/13/23 06/13/23 06/12/23 10:12 05:55 06:18 WBC 12.0 H RBC 4.40 Hgb 13.7 Hct 43.1 MCV
[2023-06-13 11:24] VITALS: BP 124/57; PULSE 59; RESP 18; TEMP 36.7; O2SAT 95
[2023-06-13 11:48] VITALS: PULSE 78; PULSE 82
--- NOTE | 2023-06-14 13:24 | CARE MANAGER ---
Contacted patient related to hospital discharge. She states she received her meds through meds to bed program. Denies questions or concerns. She is aware of follow up appointment. HERNESTO Garcia
== END 2023-06-13 13:41 | disposition home or self-care (01) | DRG 194 ==
LOC: ER 11:24 → 2ND 13:20
PROVIDERS: Admitting Provider Internal Medicine; Emergency Provider Emergency Medicine; PCP Nurse Practitioner Family; Visit Provider Internal Medicine
DX: J18.9 Pneumonia, unspecified organism (principal); D84.9 Immunodeficiency, unspecified; J44.0 Chronic obstructive pulmonary disease with (acute) lower respiratory infection; F17.210 Nicotine dependence, cigarettes, uncomplicated; M06.9 Rheumatoid arthritis, unspecified; N18.30 Chronic kidney disease, stage 3 unspecified
CPT/HCPCS: 36415; 71045; 71046; 71250; 80048; 80053; 80202; 81001; 83605; 83690; 84145; 84484; 85025; 87040; 87070; 87205; 87636; 93005; 94640; 99285; J0692; J2543

== ENCOUNTER 2024-03-06 14:57 | Emergency (ER) | payer MEDICARE, BC, SELFPAY ==
[2024-03-06 15:15] VITALS: BP 105/62; PULSE 71; RESP 16; TEMP 36.6; O2SAT 96; BMI 35.4
--- NOTE | 2024-03-06 15:16 | HMH.EDGENADL ---
Discharge Plan Disposition Patient Disposition: Home, Self-Care Condition: Good Prescriptions Prescriptions: New ondansetron 4 mg tablet,disintegrating 4 mg PO QID PRN (Reason: nausea and vomiting) Qty: 10 0RF No Action duloxetine 60 MG capsule,delayed release(DR/EC) 60 mg PO DAILY methotrexate sodium 2.5 mg tablet 7.5 mg PO WEEKLY Patient Comments: TAKE 3 TABLETS BY MOUTH EVERY WEEK atorvastatin 20 mg tablet 20 mg PO DAILY Patient Comments: TAKE 1 TABLET BY MOUTH EVERY DAY cetirizine 10 mg Tablet 10 mg PO DAILY esomeprazole magnesium [Nexium] 40 mg Capsule,Delayed Release(Dr/Ec) 40 mg PO DAILY folic acid 1 mg tablet 1 mg PO DAILY Patient Comments: TAKE ONE TABLET BY MOUTH EVERY DAY Farxiga 5 mg Tablet 5 mg PO DAILY prednisone 5 mg tablet 5 mg PO DAILY olmesartan 40 mg tablet 40 mg PO DAILY Patient Comments: TAKE 1 TABLET BY MOUTH EVERY DAY Ozempic 1 mg/dose (4 mg/3 mL) pen injector 1 mg SQ WEEKLY atenolol 25 mg tablet 25 mg PO DAILY Patient Comments: TAKE 1 TABLET BY MOUTH DAILY aspirin 81 mg Tablet,Delayed Release (Dr/Ec) 81 mg PO DAILY levothyroxine 75 mcg tablet 75 mcg PO DAILY hydrocodone-acetaminophen 7.5-325 mg tablet 1 tab PO TIDP PRN (Reason: Moderate Pain (Scale Score 5-6)) Patient Comments: TAKE 1 TABLET BY MOUTH THREE TIMES DAILY NEEDED azithromycin 250 mg tablet See Rx Instructions .ROUTE .COMPLEX Qty: 6 0RF Rx Instructions: For 250 mg dose pack: take 500 mg today (day 1), then 250 mg for 4 days (days 2-5) cefdinir 300 mg capsule 300 mg PO BID 3 Days Qty: 6 0RF montelukast 10 MG tablet 10 mg PO PM Referrals Follow up/Referrals: Zohaib Palmer [Referring] - See instructions Tereso Castañeda APRN [Primary Care Provider] - See instructions Clinical Impressions Clinical Impression: Dark stools, Nausea vomiting and diarrhea Print Language Print Language: Bel[place]ian Discharge ED Provider: Denny Hassan General Adult HPI <CAITY Nava - Last Filed: 03/06/24 17:56> General Chief complaint: Abdominal Pain Stated complaint: bleeding thru bowels Time Seen by Provider: 03/06/24 15:01 History of Present Illness HPI narrative: Patient presents for evaluation of nausea vomiting and diarrhea but more concerning the dark stool. She states that she had significant amount of diarrhea associated nausea vomiting over the last 2 days that has tapered off however she noticed today that she was having very dark stool. She does not take any [id number] NSAIDs and is on no blood thinners. She denies chest pain fever chills hemoptysis hematochezia hematemesis hematuria epigastric abdominal pain. Related Data Home Medications ?Medication ?Instructions ?Recorded ?Confirmed duloxetine 60 mg capsule,delayed 60 mg PO DAILY Mood 10/21/18 06/11/23 release montelukast 10 mg tablet 10 mg PO PM Breathing Problems 04/30/20 06/11/23 aspirin 81 mg tablet,delayed 81 mg PO DAILY Heart Health 06/11/23 06/11/23 release atenolol 25 mg tablet 25 mg PO DAILY High Blood Pressure 06/11/23 06/11/23 atorvastatin 20 mg tablet 20 mg PO DAILY Cholesterol 06/11/23 06/11/23 cetirizine 10 mg tablet 10 mg PO DAILY Allergy Symptoms 06/11/23 06/11/23 dapagliflozin propanediol 5 mg 5 mg PO DAILY 06/11/23 06/11/23 tablet (Farxiga) esomeprazole magnesium 40 mg 40 mg PO DAILY Acid Reflux 06/11/23 06/11/23 capsule,delayed release (Nexium) folic acid 1 mg tablet 1 mg PO DAILY Supplement 06/11/23 06/11/23 hydrocodone 7.5 mg-acetaminophen 1 tab PO TIDP PRN Moderate Pain 06/11/23 06/11/23 325 mg tablet (Scale Score 5-6) levothyroxine 75 mcg tablet 75 mcg PO DAILY Thyroid 06/11/23 06/11/23 methotrexate sodium 2.5 mg tablet 7.5 mg PO WEEKLY 06/11/23 06/11/23 olmesartan 40 mg tablet 40 mg PO DAILY High Blood Pressure 06/11/23 06/11/23 prednisone 5 mg tablet 5 mg PO DAILY
--- NOTE | 2024-03-06 15:23 | CT_ITS ---
FINAL REPORT TECHNIQUE: After the administration of oral and intravenous contrast, axial images were obtained through the abdomen and pelvis by computed tomography. The study was performed with techniques to keep radiation dose as low as reasonably achievable, (ALARA). Individual dose reduction techniques using automated exposure control or adjustment of mA and/or kV according to the patient's size were employed. CLINICAL HISTORY: Abdominal pain diarrhea dark stool COMPARISON: 09/11/2020 FINDINGS: Abdomen: Scarring is present in the lingula. There is fatty infiltration of the liver. The gallbladder has been surgically resected. The spleen, pancreas, and adrenals appear unremarkable. Mild right renal atrophy is noted. 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 There is no free fluid or adenopathy. Pelvis: The appendix is normal in appearance. The uterus is present. The urinary bladder is unremarkable. There is no free fluid or adenopathy. IMPRESSION: No acute intra-abdominal process. Fatty infiltration of the liver, prior cholecystectomy. Reviewed, Interpreted and Dictated by Chidi Del Toro MD Transcribed by Judith Gloria Authenticated and [facility]
[2024-03-06 15:27] LABS: Basophils # 0.1 K/mm3 (0-0.2); Basophils % 0.5 % (0.1-2.0); Eosinophils # 0.3 K/mm3 (0.0-0.4); Eosinophils % 2.5 % (0.1-12.0); Hematocrit 46.6 % (37.0-47.0); Hemoglobin 14.2 g/dL (12.2-16.2); Lymphocytes # 1.9 K/mm3 (0.7-4.5); Mean Corpuscular HGB Conc 30.5 g/dL (31.8-35.4); Mean Corpuscular Hemoglobin 31.3 pg (27.0-31.2); Mean Corpuscular Volume 102.6 fl (81-99); Mean Platelet Volume 8.9 fl (7.4-10.4); Monocytes # 0.4 K/mm3 (0.1-1.0); Monocytes % 2.9 % (1.7-9.3); Platelet Count 243 K/mm3 (142-424); Red Blood Count 4.54 M/mm3 (4.20-5.40); Red Cell Distribution Width 16.3 % (11.5-17.5); White Blood Count 12.6 K/mm3 (4.8-10.8)
[2024-03-06 15:48] LABS: Alanine Aminotransferase 64 U/L (12-78); Albumin Level 3.4 g/dl (3.5-5.0); Albumin/Globulin Ratio 1.1 (1.1-1.8); Alkaline Phosphatase 67 U/L (38-126); Anion Gap 8.3 mEq/L (5-15); Aspartate Amino Transferase 40 U/L (14-36); Bilirubin,Total 0.8 mg/dl (0.2-1.3); Blood Urea Nitrogen 33 mg/dl (7-17); Carbon Dioxide 24 mmol/L (22.0-30.0); Chloride 106 mmol/L (98-107); Creatinine Clearance Estimated 48 mL/min (50-200); Estimated Glomerular Filt Rate 32 ml/min (>60); GFR (African American) 39 ML/MIN (>60); Globulin 3.2 g/dL (1.3-3.2); Glucose 127 mg/dl (74-100); Lipase 72 U/L (23-300); Potassium 4.3 mmoL/L (3.5-5.1); Sodium 134 mmol/L (136-145); Total Protein,Serum 6.6 g/dl (6.3-8.2)
[2024-03-06 15:54] LABS: Activated Partial Thrombo Time 22.3 seconds (22.8-30.6); INR 0.92 (0.9-1.1); Prothrombin Time 10.4 seconds (10.1-12.5)
--- NOTE | 2024-03-06 16:01 | PC.NURSE ---
I rounded on the pt and took her a pillow. no needs voiced. call ellis in reach.
--- NOTE | 2024-03-06 16:01 | PC.NURSE ---
pt taken to radiology
[2024-03-06 16:43] LABS: Magnesium 1.9 mg/dl (1.6-2.3)
[2024-03-06 17:08] VITALS: BP 100/57; PULSE 60; RESP 18; TEMP 36.7; O2SAT 98
[2024-03-06 17:25] VITALS: BP 120/75; PULSE 71; RESP 16; TEMP 36.7
== END 2024-03-06 17:25 | disposition home or self-care (01) ==
PROVIDERS: Physician Assistant; Emergency Provider Emergency Medicine; PCP Nurse Practitioner Family
DX: R19.5 Other fecal abnormalities (principal); R11.2 Nausea with vomiting, unspecified; R19.7 Diarrhea, unspecified; F17.210 Nicotine dependence, cigarettes, uncomplicated; R10.817 Generalized abdominal tenderness
CPT/HCPCS: 74177; 80053; 83690; 83735; 85025; 85610; 85730; 96361; 96374; 96375; 99284; J0131; J2405; J7120; Q9967

== ENCOUNTER 2024-05-03 08:57 | Emergency (ER) | payer MEDICARE, BC, SELFPAY ==
[2024-05-03 08:59] VITALS: BP 104/67; PULSE 109; RESP 16; TEMP 36.7; O2SAT 96; BMI 36.9
[2024-05-03 09:04] VITALS: BP 104/67; PULSE 113; O2SAT 96
--- NOTE | 2024-05-03 09:09 | CT_ITS ---
PROCEDURE INFORMATION: Exam: CT Chest Without Contrast; Diagnostic Exam date and time: 05/03/2024 9:37 AM Age: 68 years old Clinical indication: Injury or trauma; Fall; Blunt trauma (contusions or hematomas); Additional info: Fall posterior trauma TECHNIQUE: Imaging protocol: Diagnostic computed tomography of the chest without contrast. Radiation optimization: All CT scans at this facility use at least one of these dose optimization techniques: automated exposure control; mA and/or kV adjustment per patient size (includes targeted exams where dose is matched to clinical indication); or iterative reconstruction. COMPARISON: CT CHEST WO CON 06/11/2023 11:24 AM FINDINGS: Lungs: COPD with mild upper lobe emphysematous changes. Few small indistinct peribronchial nodular opacities right mid lung zone developed from prior study likely infectious in nature. Remaining lung benitez are essentially clear. Pleural spaces: Unremarkable. No pneumothorax. No pleural effusion. Heart: Heart is not significantly enlarged. There are mild calcifications of the coronary arteries. No significant pericardial effusion. Mediastinal space: Anterior mediastinal fat planes are preserved. No evidence of mediastinal hematoma. Lymph nodes: Unremarkable. No enlarged lymph nodes. Vasculature: Scattered atherosclerotic changes of the thoracic aorta. No aortic aneurysm. Gallbladder and biliary ducts: Gallbladder has been removed. Bones/joints: Unremarkable. No acute fracture. Soft tissues: Small hiatal hernia.. IMPRESSION: 1. No evidence of intrathoracic injury. 2. Few patchy nodular opacities right midlung zone, new, likely infectious in nature. COMMENTS: The presence of pulmonary emphysema on CT is an independent risk factor for lung cancer. In the absence of a history or active diagnosis of lung cancer, it is recommended that this patient with emphysema be evaluated for enrollment in a low dose CT lung cancer screening program.
--- NOTE | 2024-05-03 09:09 | CT_ITS ---
PROCEDURE INFORMATION: Exam: CT Cervical Spine Without Contrast Exam date and time: 05/03/2024 9:35 AM Age: 68 years old Clinical indication: Injury or trauma; Fall; Blunt trauma; Additional info: Fall posterior trauma TECHNIQUE: Imaging protocol: Computed tomography of the cervical spine without contrast. Radiation optimization: All CT scans at this facility use at least one of these dose optimization techniques: automated exposure control; mA and/or kV adjustment per patient size (includes targeted exams where dose is matched to clinical indication); or iterative reconstruction. COMPARISON: CT HEAD/BRAIN WO CON 05/03/2024 9:32 AM FINDINGS: Bones: No acute fracture. Mild straightening of cervical lordosis. Mild multilevel degenerative change. Lungs: Lung apices are normal. Soft tissues: No acute abnormality. IMPRESSION: 1. No acute fracture. Mild straightening of cervical lordosis may be due to pain or positioning. 2. Mild degenerative change.
--- NOTE | 2024-05-03 09:09 | CT_ITS ---
PROCEDURE INFORMATION: Exam: CT Head Without Contrast Exam date and time: 05/03/2024 9:32 AM Age: 68 years old Clinical indication: Injury or trauma; Fall; Blunt trauma (contusions or hematomas); Additional info: Fall posterior loc TECHNIQUE: Imaging protocol: Computed tomography of the head without contrast. Radiation optimization: All CT scans at this facility use at least one of these dose optimization techniques: automated exposure control; mA and/or kV adjustment per patient size (includes targeted exams where dose is matched to clinical indication); or iterative reconstruction. COMPARISON: CT HEAD/BRAIN WO/W CON 06/28/2019 9:45 AM FINDINGS: Brain: No acute infarct, hemorrhage, mass, or mass effect. Remote focal infarct left anterior pastor radiata. Mild chronic white matter microvascular ischemic change. Cerebral ventricles: Normal ventricles. No appreciable extra-axial fluid. Paranasal sinuses: Clear. Mastoid air cells: Clear. Orbital cavities: Orbits are unremarkable. Sella is unremarkable. Bones: There are few scattered lytic lesions in the calvarium, measuring up to 4 mm in the right parietal calvarium. Soft tissues: Unremarkable. IMPRESSION: 1. No acute intracranial abnormality. Chronic changes. 2. There are few scattered lytic lesions in the calvarium, measuring up to 4 mm in the right parietal calvarium. Nonspecific finding. Can be seen with multiple myeloma versus metastatic disease. Recommend correlation.
--- NOTE | 2024-05-03 09:09 | ECG_ITS ---
APPROVED REPORT Exam: Resting ECG HR:93 bpm ECG Measurements Heart Rate 93 AXES NE 135 P 69 QRSd 77 QRS 62 QT 340 T 62 QTc 391 Conclusion SINUS RHYTHM POSSIBLE RIGHT ATRIAL ENLARGEMENT [0.25mV P-WAVE] POSSIBLE LEFT ATRIAL ENLARGEMENT [-0.1mV P-WAVE IN V1/V2] BORDERLINE ECG Electronically signed by : MONICO PAYTON, 05/03/2024 15:11:58
--- NOTE | 2024-05-03 09:11 | ED_ITS ---
Discharge Plan Disposition Patient Disposition: Home, Self-Care Prescriptions Prescriptions: New levofloxacin 750 mg tablet 750 mg PO DAILY 4 Days Qty: 4 0RF Rx Instructions: Take your first dose beginning tomorrow 05-04-2024 No Action duloxetine 60 MG capsule,delayed release(DR/EC) 60 mg PO DAILY methotrexate sodium 2.5 mg tablet 7.5 mg PO WEEKLY Patient Comments: TAKE 3 TABLETS BY MOUTH EVERY WEEK atorvastatin 20 mg tablet 20 mg PO DAILY Patient Comments: TAKE 1 TABLET BY MOUTH EVERY DAY cetirizine 10 mg Tablet 10 mg PO DAILY esomeprazole magnesium [Nexium] 40 mg Capsule,Delayed Release(Dr/Ec) 40 mg PO DAILY folic acid 1 mg tablet 1 mg PO DAILY Patient Comments: TAKE ONE TABLET BY MOUTH EVERY DAY Farxiga 5 mg Tablet 5 mg PO DAILY prednisone 5 mg tablet 5 mg PO DAILY olmesartan 40 mg tablet 40 mg PO DAILY Patient Comments: TAKE 1 TABLET BY MOUTH EVERY DAY Ozempic 1 mg/dose (4 mg/3 mL) pen injector 1 mg SQ WEEKLY atenolol 25 mg tablet 25 mg PO DAILY Patient Comments: TAKE 1 TABLET BY MOUTH DAILY aspirin 81 mg Tablet,Delayed Release (Dr/Ec) 81 mg PO DAILY levothyroxine 75 mcg tablet 75 mcg PO DAILY hydrocodone-acetaminophen 7.5-325 mg tablet 1 tab PO TIDP PRN (Reason: Moderate Pain (Scale Score 5-6)) Patient Comments: TAKE 1 TABLET BY MOUTH THREE TIMES DAILY NEEDED azithromycin 250 mg tablet See Rx Instructions .ROUTE .COMPLEX Qty: 6 0RF Rx Instructions: For 250 mg dose pack: take 500 mg today (day 1), then 250 mg for 4 days (days 2-5) cefdinir 300 mg capsule 300 mg PO BID 3 Days Qty: 6 0RF ondansetron 4 mg tablet,disintegrating 4 mg PO QID PRN (Reason: nausea and vomiting) Qty: 10 0RF montelukast 10 MG tablet 10 mg PO PM Referrals Follow up/Referrals: Tereso Castañeda APRN [Primary Care Provider] - See instructions Activity Restrictions/Add. Instructions Additional Instructions/Restrictions: At this time it was felt you are safe to be discharged home. If new or worsening symptoms please do not hesitate to return the emergency department. As discussed you have a few spots on the right side of your skull which can mean many things from benign to a type of cancer called multiple myeloma. You also have pneumonia for which you were given a dose of antibiotics today and will be discharged with a course of antibiotics. Please follow-up with your family doctor early next week for continued evaluation to ensure things are heading in the right direction. Continue to drink as much water as possible and this time. Clinical Impressions Clinical Impression: Fall, Pneumonia, Abnormal head CT, CKD (chronic kidney disease) Print Language Print Language: French Discharge ED Provider: Boston Ramirez General Adult HPI General Chief complaint: Fall Stated complaint: AO 05/03/24 07:45, fell, knocked out, back pain, Time Seen by Provider: 05/03/24 09:03 Mode of Arrival: Wheelchair Source of Information: Patient and Relative Limitations: No Limitations Description of Symptoms (Recalled from ER Triage Doc. by RN): Reports walking to the closet in the dark when she fell striking her head on a dresser and being knocked out. States once she came to she began vomiting. Also has a complaint of left rib pain, back pain, skin tear to left elbow and left lower leg. History of Present Illness HPI narrative: Patient is a 68-year-old female with no pertinent past medical history not on anticoagulants who presents emergency department for evaluation of traumatic injury sustained in a fall. Patient was on her way back from the bathroom this morning in the dark when she fell backward striking her head on the dresser and the floor. Positive LOC. She is complaining of posterior head pain, neck pain, mid back and paraspinal thoracic pain. She noticed wounds on her left elbow and left leg but has been able to bear weight and has full mobility of her joints. Last tetanus greater than 5 years. No incontinence. Due to persistent symptoms she presents here for continued evaluation Related Data Home Medications ?Medication ?Instructions ?Recorded ?Confirmed duloxetine 60 mg capsule,delayed 60 mg PO DAILY Mood 10/21/18 06/11/23 release montelukast 10 mg tablet 10 mg PO PM Breathing Problems 04/30/20 06/11/23 aspirin 81 mg tablet,delayed 81 mg PO DAILY Heart Health 06/11/23 06/11/23 release atenolol 25 mg tablet 25 mg PO DAILY High Blood Pressure 06/11/23 06/11/23 atorvastatin 20 mg tablet 20 mg PO DAILY Cholesterol 06/11/23 06/11/23 cetirizine 10 mg tablet 10 mg PO DAILY Allergy Symptoms 06/11/23 06/11/23 dapagliflozin propanediol 5 mg 5 mg PO DAILY 06/11/23 06/11/23 tablet (Farxiga) esomeprazole magnesium 40 mg 40 mg PO DAILY Acid Reflux 06/11/23 06/11/23 capsule,delayed release (Nexium) folic acid 1 mg tablet 1 mg PO DAILY Supplement 06/11/23 06/11/23 hydrocodone 7.5 mg-acetaminophen 1 tab PO TIDP PRN Moderate Pain 06/11/23 06/11/23 325 mg tablet (Scale Score 5-6) levothyroxine 75 mcg tablet 75 mcg PO DAILY Thyroid 06/11/23 06/11/23 methotrexate sodium 2.5 mg tablet 7.5 mg PO WEEKLY 06/11/23 06/11/23 olmesartan 40 mg tablet 40 mg PO DAILY High Blood Pressure 06/11/23 06/11/23 prednisone 5 mg tablet 5 mg PO DAILY Steroid 06/11/23 06/11/23 semaglutide 1 mg/dose (4 mg/3 mL) 1 mg SQ WEEKLY 06/11/23 06/11/23 subcutaneous pen injector (Ozempic) Previous Rx's ?Medication ?Instructions ?Recorded azithromycin 250 mg tablet See Rx Instructions PO .COMPLEX #6 06/13/23 tabs cefdinir 300 mg capsule 300 mg PO BID 3 days #6 caps 06/13/23 ondansetron 4 mg disintegrating 4 mg PO QID PRN nausea and 03/06/24 tablet vomiting #10 tabs levofloxacin 750 mg tablet 750 mg PO DAILY pneumonia 4 days 05/03/24 #4 tabs Allergies Allergy/AdvReac Type Severity Reaction Status Date / Time No Known Allergies Allergy Unverified 06/11/23 10:14 [facility] Disclaimer: The information contained in this section may have been updated after the patient was seen, as this information can be updated by other users. Medical History (Updated 05/03/24 @ 11:49 by Boston Ramirez MD) Immunocompromised state due to drug therapy Social History Smoking Status: Current every day smoker tobacco type: cigarettes packs per day: 1 alcohol intake: never substance use type: denies use current occupational status: disabled Travel in the last 8 weeks: None household members: family housing: house Other Medical History Have you received the Flu Vaccine for this season: No Have you received the Pneumonia Vaccine: No ROS Obtained: Yes Systems reviewed as appropriate & no additional complaints except as documented Physical Exam General General appearance: alert and in no apparent distress Head Head exam: atraumatic and normocephalic Eye Eye exam: Present PERRL ENT ENT exam: Present mucous membranes moist Neck Neck exam: Present normal inspection and other (Midline tenderness) Chest Chest inspection: Present normal inspection and symmetric chest wall rise Respiratory Respiratory exam: Present normal lung sounds bilaterally; Absent respiratory distress Cardiovascular Cardiovascular exam: Present regular rate and normal rhythm Abdominal Exam Abdominal exam: Present soft; Absent tenderness Extremities Exam Extremities exam: Present other (Skin tear left lateral leg that is hemostatic, skin tear over the left elbow. Full active and passive range of motion of all extremities.) Neurological Exam Neurological exam: Present alert and CN II-XII intact; Absent motor sensory deficit Psychiatric Psychiatric exam: Present normal affect Skin Skin exam: Present warm and dry Medical Decision Making Medical Records Screening: Per USPSTF and CDC recommendations, given the prevalence of disease in our region, it is our hospital?s policy to screen for HIV and viral Hepatitis for all patients aged 18 and over and those with ongoing risk factors. Vj Inquiry Pt receiving controlled substance: No Vital Signs: 05/03/24 08:59 05/03/24 09:04 05/03/24 10:01 Temperature 98.0 F Temperature Source Oral Pulse Rate 113 H 90 Pulse Rate [Radial] 109 H Respiratory Rate 16 Blood Pressure 104/67 L 119/64 Blood Pressure [Right Arm] 104/67 L Blood Pressure Mean 70 Blood Pressure Mean [Right Arm] 79 Blood Pressure Source [Right Arm] Automatic Cuff Blood Pressure Position [Right Arm] Sitting 02 Sat by Pulse Oximetry 96 96 96 Oxygen Delivery Method Room Air Room Air Room Air 05/03/24 10:30 05/03/24 11:00 Temperature Temperature Source Pulse Rate 84 83 Pulse Rate [Radial] Respiratory Rate Blood Pressure 113/80 115/73 Blood Pressure [Right Arm] Blood Pressure Mean 91 96 Blood Pressure Mean [Right Arm] Blood Pressure Source [Right Arm] Blood Pressure Position [Right Arm] 02 Sat by Pulse Oximetry 98 97 Oxygen Delivery Method Room Air Room Air Lab Data Lab Results 05/03/24 09:10: WBC 17.0 H, RBC 5.07, Hgb 16.1, Hct 50.5 H, MCV 99.6 H, MCH 31.7 H, MCHC 31.8, RDW 16.1, Plt Count 250, MPV 8.6, Neut % (Auto) 74.4, Lymph % (Auto) 17.8, [place] % (Auto) 4.3, Eos % (Auto) 2.5, Baso % (Auto) 1.1, Neut # (Auto) 12.6 H, Lymph # (Auto) 3.0, [place] # (Auto) 0.7, Eos # (Auto) 0.4, Baso # (Auto) 0.2, Total Counted 100, Neutrophils % (Manual) 69, Lymphocytes % (Manual) 26, Monocytes % (Manual) 3, Eosinophils % (Manual) 2, Platelet Estimate Normal, RBC Morphology Normal, Sodium 136, Potassium 4.5, Chloride 103, Carbon Dioxide 26, Anion Gap 11.5, BUN 37 H, Creatinine 1.90 H, Estimated Creat Clear 41, E stimated GFR 26 L, Est GFR ( Amer) 32 L, Glucose 130 H, Calcium 9.3 05/03/24 09:10 05/03/24 09:10 Orders (Tests/Meds): ED MEDICATIONS Generic Name Dose Route Start Last Admin Trade Name Freq PRN Reason Stop Dose Admin Levofloxacin 750 mg 05/03/24 11:47 Levofloxacin 750 Mg Tablet PO 05/03/24 11:48 ONCE ONE Discontinued Medications Generic Name Dose Route Start Last Admin Trade Name Freq PRN Reason Stop Dose Admin Acetaminophen 1,000 mg 05/03/24 09:09 05/03/24 09:54 Acetaminophen 500mg Tab PO 05/03/24 09:10 1,000 mg ONCE ONE Administration Tetanus/Reduced Diphtheria/Acell Pertussis 0.5 ml 05/03/24 09:09 05/03/24 09:55 Tet/Diphth/Pert-Adult 0.5ml Syringe IM 05/03/24 09:10 0.5 ml .ONCE ONE Administration ORDERS Category Date Time Status CT cervical spine wo con Stat Cat Scan 05/03/24 09:[address] chest wo con Stat Cat Scan 05/03/24 09:[address] head/brain wo con Stat Cat Scan 05/03/24 09:[address] lumbar spine wo con Stat Cat Scan 05/03/24 09:18 Completed BMP [Basic Metabolic Panel] Stat Lab 05/03/24 09:10 Completed CBC w/Auto Diff [Complete Blood Count Auto Diff] Stat Lab 05/03/24 09:10 Completed HIV (1&2) Antibody Rapid Stat Lab 05/03/24 09:10 Received Hep C Ab with Reflex to RNA Stat Lab 05/03/24 09:10 Received ECG Data Tracing #1: Independently interpreted by me, rate is 93, rhythm is regular, axis is normal, no ST elevation in anatomical contiguous leads, QTc 391. Medical Decision Narrative: In summary patient is 68-year-old female past medical history described above presents emergency department for evaluation of traumatic injury sustained in a fall. Patient is hemodynamically stable and nontoxic-appearing upon arrival. C-collar initiated given trauma and midline neck pain. Differential clues intracranial hemorrhage, fracture, among others. Workup will be conducted with basic hematologic labs, noncontrasted CT scan of the head, cervical spine, chest without. Plain films of the left elbow and leg were considered adjacent to the skin tears however patient has full active and passive range of motion is not tender over the joint we deferred. Tdap will be updated and skin tears will be dressed at bedside. Workup reviewed by me, white count of 17, no significant anemia, no thrombocytopenia, mildly elevated creatinine compared to baseline which has been this level before, calcium 9.3. CT imaging shows no acute intracranial abnormality, there are few scattered lytic lesions on the calvarium measuring up to 4 mm in the right parietal calvarium which is nonspecific however can be seen with multiple myeloma versus metastatic disease. There are a few patchy nodular opacities in the right midlung zone likely infectious in nature. Upon repeat evaluation patient states she recently had COVID however has a persistent cough over the last 2 weeks. She does not have any significant respiratory distress and is saturating the high 90s on room air. Given this patient will be treated empirically for pneumonia for which first dose will be given here. Upon repeat evaluation patient was well-appearing, C-spine cleared, ambulatory bedside. Given this patient is appropriate for discharge at this time was given return precautions. Critical Care Critical Care Time Critical Care Time: No
--- NOTE | 2024-05-03 09:18 | CT_ITS ---
PROCEDURE INFORMATION: Exam: CT Lumbar Spine Without Contrast Exam date and time: 05/03/2024 9:41 AM Age: 68 years old Clinical indication: Injury or trauma; Fall; Blunt trauma (contusions or hematomas); Additional info: Fall, prev compression FX TECHNIQUE: Imaging protocol: Computed tomography of the lumbar spine without contrast. Radiation optimization: All CT scans at this facility use at least one of these dose optimization techniques: automated exposure control; mA and/or kV adjustment per patient size (includes targeted exams where dose is matched to clinical indication); or iterative reconstruction. COMPARISON: CT ABDOMEN PELVIS W CON 03/06/2024 4:06 PM FINDINGS: Bones/joints: Lumbar curvature and alignment is unremarkable. Mild compression deformity involving the superior endplate of L4 vertebral body believe longstanding with secondary degenerative endplate changes. Remainder of the vertebral bodies are intact. No evidence of spondylolysis or spondylolisthesis. Disc heights are fairly well-maintained. Mild endplate osteophytic lipping throughout the lumbar spine. No severe stenosis of the spinal canal detected. Soft tissues: Unremarkable. IMPRESSION: No acute bony abnormalities.
[2024-05-03 09:20] LABS: Basophils # 0.2 K/mm3 (0-0.2); Basophils % 1.1 % (0.1-2.0); Eosinophils # 0.4 K/mm3 (0.0-0.4); Eosinophils % 2.5 % (0.1-12.0); Hematocrit 50.5 % (37.0-47.0); Hemoglobin 16.1 g/dL (12.2-16.2); Lymphocytes % 17.8 % (10-50); Mean Corpuscular HGB Conc 31.8 g/dL (31.8-35.4); Mean Corpuscular Hemoglobin 31.7 pg (27.0-31.2); Mean Corpuscular Volume 99.6 fl (81-99); Mean Platelet Volume 8.6 fl (7.4-10.4); Monocytes # 0.7 K/mm3 (0.1-1.0); Monocytes % 4.3 % (1.7-9.3); Neutrophils # 12.6 K/mm3 (1.8-7.8); Neutrophils % 74.4 % (37.0-80.0); Platelet Count 250 K/mm3 (142-424); Red Blood Count 5.07 M/mm3 (4.20-5.40); Red Cell Distribution Width 16.1 % (11.5-17.5)
[2024-05-03 09:25] LABS: Chloride 103 mmol/L (98-107); Potassium 4.5 mmoL/L (3.5-5.1); Sodium 136 mmol/L (136-145)
[2024-05-03 09:28] LABS: Anion Gap 11.5 mEq/L (5-15); Blood Urea Nitrogen 37 mg/dl (7-17); Calcium 9.3 mg/dl (8.4-10.2); Carbon Dioxide 26 mmol/L (22.0-30.0); Creatinine Clearance Estimated 41 mL/min (50-200); Estimated Glomerular Filt Rate 26 ml/min (>60); GFR (African American) 32 ML/MIN (>60); Glucose 130 mg/dl (74-100)
[2024-05-03 09:49] LABS: MANUAL DIFFERENTIAL MANUAL DIFFERENTIAL (MANUAL DIFF)
[2024-05-03] MEDS: ACETAMINOPHEN 500MG TAB 1000 MG PO (09:54)
[2024-05-03] MEDS: TET/DIPHTH/PERT-ADULT 0.5ML SYRINGE 0.5 ML IM (09:55)
[2024-05-03 10:01] VITALS: BP 119/64; PULSE 90; O2SAT 96
[2024-05-03 10:30] VITALS: BP 113/80; PULSE 84; O2SAT 98
[2024-05-03 10:30] LABS: Eosinophils % 2 % (0-3); Lymphocytes % 26 % (10-50); Monocytes % 3 % (2-9); Neutrophils % 69 % (42-76); Platelet Estimate Normal; RBC Morphology Normal; Total Cells Counted 100
[2024-05-03 11:00] VITALS: BP 115/73; PULSE 83; O2SAT 97
--- NOTE | 2024-05-03 11:35 | PC.NURSE ---
Dr. Ramirez at bedside
[2024-05-03] MEDS: levoFLOXacin 750 MG TABLET PO (11:53)
[2024-05-03 12:05] VITALS: BP 117/73; PULSE 82; RESP 18; TEMP 36.7; O2SAT 96
[2024-05-03 12:16] LABS: HIV (1&2) Antibody Rapid NONREACTIVE (NONREACTIVE)
[2024-05-04 05:56] LABS: HCV Ab Non Reactive (Non Reactive)
== END 2024-05-03 12:14 | disposition home or self-care (01) ==
PROVIDERS: Emergency Provider Emergency Medicine; PCP Nurse Practitioner Family
DX: N18.9 Chronic kidney disease, unspecified (principal); R93.0 Abnormal findings on diagnostic imaging of skull and head, not elsewhere classified; J18.9 Pneumonia, unspecified organism; R07.82 Intercostal pain; M54.9 Dorsalgia, unspecified; M25.522 Pain in left elbow; M79.662 Pain in left lower leg; Z23 Encounter for immunization; W01.190A Fall on same level from slipping, tripping and stumbling with subsequent striking against furniture, initial encounter; Y93.89 Activity, other specified; Y92.003 Bedroom of unspecified non-institutional (private) residence as the place of occurrence of the external cause
CPT/HCPCS: 70450; 71250; 72125; 72131; 80048; 85007; 85025; 86803; 87389; 90471; 90715; 93005; 99284

== ENCOUNTER 2024-06-07 13:39 | Emergency (ER) | payer MEDICARE, BC, SELFPAY ==
[2024-06-07 13:40] VITALS: BP 180/92; PULSE 81; RESP 20; TEMP 36.4; O2SAT 94; BMI 35.7
[2024-06-07 13:44] VITALS: BP 180/92; PULSE 75; O2SAT 95
--- NOTE | 2024-06-07 13:48 | ED_ITS ---
<Statement entered by Boston Ramirez MD - 06/07/24 18:33> I was consulted by the ERIN, and we discussed the complexity of the problems being addressed. I approved the treatment and management plan for this patient's care in the emergency department, thus performing a substantive portion of the medical decision making. I had a personal discussion with this patient she likely is mildly volume overloaded and was instructed to take Lasix every other day for a total of 3 doses and follow-up with her family doctor or homemaking rehabilitation consultant within the next week Boston Ramirez MD Discharge Plan Disposition Patient Disposition: Home, Self-Care Condition: Good Prescriptions Prescriptions: No Action duloxetine 60 MG capsule,delayed release(DR/EC) 60 mg PO DAILY methotrexate sodium 2.5 mg tablet 7.5 mg PO WEEKLY Patient Comments: TAKE 3 TABLETS BY MOUTH EVERY WEEK atorvastatin 20 mg tablet 20 mg PO DAILY Patient Comments: TAKE 1 TABLET BY MOUTH EVERY DAY cetirizine 10 mg Tablet 10 mg PO DAILY esomeprazole magnesium [Nexium] 40 mg Capsule,Delayed Release(Dr/Ec) 40 mg PO DAILY folic acid 1 mg tablet 1 mg PO DAILY Patient Comments: TAKE ONE TABLET BY MOUTH EVERY DAY Farxiga 5 mg Tablet 5 mg PO DAILY prednisone 5 mg tablet 5 mg PO DAILY olmesartan 40 mg tablet 40 mg PO DAILY Patient Comments: TAKE 1 TABLET BY MOUTH EVERY DAY Ozempic 1 mg/dose (4 mg/3 mL) pen injector 1 mg SQ WEEKLY atenolol 25 mg tablet 25 mg PO DAILY Patient Comments: TAKE 1 TABLET BY MOUTH DAILY aspirin 81 mg Tablet,Delayed Release (Dr/Ec) 81 mg PO DAILY levothyroxine 75 mcg tablet 75 mcg PO DAILY hydrocodone-acetaminophen 7.5-325 mg tablet 1 tab PO TIDP PRN (Reason: Moderate Pain (Scale Score 5-6)) Patient Comments: TAKE 1 TABLET BY MOUTH THREE TIMES DAILY NEEDED azithromycin 250 mg tablet See Rx Instructions .ROUTE .COMPLEX Qty: 6 0RF Rx Instructions: For 250 mg dose pack: take 500 mg today (day 1), then 250 mg for 4 days (days 2-5) cefdinir 300 mg capsule 300 mg PO BID 3 Days Qty: 6 0RF ondansetron 4 mg tablet,disintegrating 4 mg PO QID PRN (Reason: nausea and vomiting) Qty: 10 0RF levofloxacin 750 mg tablet 750 mg PO DAILY 4 Days Qty: 4 0RF Rx Instructions: Take your first dose beginning tomorrow 05-04-2024 montelukast 10 MG tablet 10 mg PO PM Referrals Follow up/Referrals: Tereso Castañeda APRN [Primary Care Provider] - See instructions Activity Restrictions/Add. Instructions Additional Instructions/Restrictions: Please take your Lasix every other day for 3 doses. Follow-up next week with your homemaking rehabilitation consultant as we discussed and also with your PCP at the first part of next week preferably within 48 hours. Return to ER for any worsening signs or symptoms as needed. Clinical Impressions Clinical Impression: Edema, peripheral Print Language Print Language: Romansh Discharge ED Provider: Denny Hassan General Adult HPI <CAITY Nava - Last Filed: 06/07/24 17:48> General Chief complaint: Weakness Stated complaint: hands legs face swollen cough Time Seen by Provider: 06/07/24 13:48 History of Present Illness HPI narrative: Patient presents for evaluation of edema and cough. Patient went to bed feeling normally last night and when she got up this morning she has subjective swelling primarily of her upper extremities and face. Patient does have known peripheral artery disease and is scheduled for elective surgery at [facility] for the same in the near future. She also has a history of rheumatoid arthritis but has been off of her methotrexate and prednisone for more than 30 days. She also has known chronic kidney disease and also has Lasix available for dependent edema which she has not been taking. She has not been indulging in high sodium content foods and otherwise denies chest pain shortness of breath fever chills hemoptysis hematochezia melena nausea vomiting or diarrhea. Related Data Home Medications ?Medication ?Instructions ?Recorded ?Confirmed duloxetine 60 mg capsule,delayed 60 mg PO DAILY Mood 10/21/18 06/11/23 release montelukast 10 mg tablet 10 mg PO PM Breathing Problems 04/30/20 06/11/23 aspirin 81 mg tablet,delayed 81 mg PO DAILY Heart Health 06/11/23 06/11/23 release atenolol 25 mg tablet 25 mg PO DAILY High Blood Pressure 06/11/23 06/11/23 atorvastatin 20 mg tablet 20 mg PO DAILY Cholesterol 06/11/23 06/11/23 cetirizine 10 mg tablet 10 mg PO DAILY Allergy Symptoms 06/11/23 06/11/23 dapagliflozin propanediol 5 mg 5 mg PO DAILY 06/11/23 06/11/23 tablet (Farxiga) esomeprazole magnesium 40 mg 40 mg PO DAILY Acid Reflux 06/11/23 06/11/23 capsule,delayed release (Nexium) folic acid 1 mg tablet 1 mg PO DAILY Supplement 06/11/23 06/11/23 hydrocodone 7.5 mg-acetaminophen 1 tab PO TIDP PRN Moderate Pain 06/11/23 06/11/23 325 mg tablet (Scale Score 5-6) levothyroxine 75 mcg tablet 75 mcg PO DAILY Thyroid 06/11/23 06/11/23 methotrexate sodium 2.5 mg tablet 7.5 mg PO WEEKLY 06/11/23 06/11/23 olmesartan 40 mg tablet 40 mg PO DAILY High Blood Pressure 06/11/23 06/11/23 prednisone 5 mg tablet 5 mg PO DAILY Steroid 06/11/23 06/11/23 semaglutide 1 mg/dose (4 mg/3 mL) 1 mg SQ WEEKLY 06/11/23 06/11/23 subcutaneous pen injector (Ozempic) Previous Rx's ?Medication ?Instructions ?Recorded azithromycin 250 mg tablet See Rx Instructions PO .COMPLEX #6 06/13/23 tabs cefdinir 300 mg capsule 300 mg PO BID 3 days #6 caps 06/13/23 ondansetron 4 mg disintegrating 4 mg PO QID PRN nausea and 03/06/24 tablet vomiting #10 tabs levofloxacin 750 mg tablet 750 mg PO DAILY pneumonia 4 days 05/03/24 #4 tabs Allergies Allergy/AdvReac Type Severity Reaction Status Date / Time No Known Allergies Allergy Unverified 06/11/23 10:14 [facility] <CAITY Nava - Last Filed: 06/07/24 17:48> [facility] Disclaimer: The information contained in this section may have been updated after the patient was seen, as this information can be updated by other users. Medical History (Updated 06/07/24 @ 16:53 by CAITY Nava) Immunocompromised state due to drug therapy Social History Smoking Status: Current every day smoker tobacco type: cigarettes packs per day: 1 alcohol intake: never substance use type: denies use current occupational status: disabled household members: family housing: house Other Medical History Have you received the Flu Vaccine for this season: No Have you received the Pneumonia Vaccine: No <CAITY Nava - Last Filed: 06/07/24 17:48> ROS Obtained: Yes Systems reviewed as appropriate & no additional complaints except as documented Physical Exam <CAITY Nava - Last Filed: 06/07/24 17:48> General General appearance: alert and in no apparent distress Respiratory Respiratory exam: Present normal lung sounds bilaterally Cardiovascular Cardiovascular exam: Present regular rate Neurological Exam Neurological exam: Present alert and oriented X3 Medical Decision Making <CAITY Nava - Last Filed: 06/07/24 17:48> Medical Records Medical records reviewed: Yes I reviewed the patient's medical records. Screening: Per USPSTF and CDC recommendations, given the prevalence of disease in our region, it is our hospital?s policy to screen for HIV and viral Hepatitis for all patients aged 18 and over and those with ongoing risk factors. Vj Inquiry Pt receiving controlled substance: No Vital Signs: 06/07/24 13:40 06/07/24 13:44 06/07/24 15:00 Temperature 97.6 F Temperature Source Oral Pulse Rate 75 67 Pulse Rate [Right Brachial] 81 Respiratory Rate 20 Blood Pressure 180/92 H Blood Pressure [Right Arm] 180/92 H Blood Pressure Mean [Right Arm] 121 Blood Pressure Source Blood Pressure Source [Right Arm] Automatic Cuff Blood Pressure Position Blood Pressure Position [Right Arm] Supine 02 Sat by Pulse Oximetry 94 L 95 94 L Oxygen Delivery Method Room Air Room Air 06/07/24 17:07 Temperature 98.7 F Temperature Source Oral Pulse Rate 84 Pulse Rate [Right Brachial] Respiratory Rate 20 Blood Pressure 112/87 Blood Pressure [Right Arm] Blood Pressure Mean [Right Arm] Blood Pressure Source Automatic Cuff Blood Pressure Source [Right Arm] Blood Pressure Position Supine Blood Pressure Position [Right Arm] 02 Sat by Pulse Oximetry Oxygen Delivery Method Room Air Lab Data Lab results reviewed: Yes I reviewed the patient's lab results. Lab Results 06/07/24 14:07: WBC 7.6, RBC 4.38, Hgb 13.3, Hct 42.0, MCV 95.9, MCH 30.4, MCHC 31.7 L, RDW 15.5, Plt Count 245, MPV 8.4, Neut % (Auto) 63.9, Lymph % (Auto) 23.0, Mills % (Auto) 6.9, Eos % (Auto) 5.1, Baso % (Auto) 1.1, Neut # (Auto) 4.9, Lymph # (Auto) 1.8, Mills # (Auto) 0.5, Eos # (Auto) 0.4, Baso # (Auto) 0.1, Sodium 139, Potassium 3.6, Chloride 107, Carbon Dioxide 28, Anion Gap 7.6, BUN 16, Creatinine 1.50 H, Estimated Creat Clear 52, Estimated GFR 35 L, Est GFR ( Amer) 42 L, Glucose 131 H, Calcium 8.8, Total Bilirubin 0.6, AST 33, ALT 21, Alkaline Phosphatase 76, Troponin I < 0.01, NT-Pro-B Natriuret Pep 856 H , Total Protein 6.5, Albumin 3.6, Globulin 2.9, Albumin/Globulin Ratio 1.2 06/07/24 14:15: Urine Color Yellow, Urine Appearance Clear, Urine pH 6.0, Ur Specific [place] 1.020, Urine Protein Negative, Urine Glucose (UA) Negative, Urine Ketones Negative, Urine Blood Negative, Urine Nitrate Negative, Urine Bilirubin Negative, Urine Urobilinogen 0.2, Ur Leukocyte Esterase Negative, Urine RBC Occasional, Urine WBC 3-5, Ur Squamous Epith Cells 5-10, Urine Bacteria Trace 06/07/24 14:43: SARS-CoV-2 (PCR) Not detected, Influenza A Untype (PCR) Not detected, Influenza Type B (PCR) Not detected 06/07/24 14:07 06/07/24 14:07 Orders (Tests/Meds): ORDERS Category Date Time Status Chest XR 2 view (NOT portable) [XR chest 2V] Stat Exams 06/07/24 13:51 Completed BNP [NT Pro Brain Natriuretic Pep.] Stat Lab 06/07/24 14:07 Completed CBC w/Auto Diff [Complete Blood Count Auto Diff] Stat Lab 06/07/24 14:07 Completed CMP [Comprehensive Metabolic Panel] Stat Lab 06/07/24 14:07 Completed Rapid PCR Covid and Flu A/B Stat Lab 06/07/24 14:43 Completed Trop I [Troponin I] Stat Lab 06/07/24 14:07 Completed UA [Urinalysis and Microscopic] Stat Lab 06/07/24 14:15 Completed Medical Decision Narrative: In summary patient is a 68-year-old female who presents to the emergency department for evaluation of subjective swelling and cough. Patient is initially with an elevated blood pressure of 180/92 satting at 94% on room air breathing 20 times a minute with a pulse of 81 upon arrival, afebrile at 97.6. Physical exam is remarkable for no tenderness to palpation and I am unable to appreciate a significant edema although daughter in the room says her face and hands are swollen which is not normal for her mother. Patient has 2+ 2+ dependent edema which is known and not excessive. Breath sounds are clear and equal bilaterally to the bases patient is apparently in normal sinus rhythm on the bedside monitor with no increased work of breathing or accessory muscle use.. Differential diagnosis includes CHF versus acute on CKD versus viral respiratory infection etc. Initial workup will be conducted with hematologic labs plain film chest x-ray urinalysis.. Initial interventions are deferred for now due to unclear etiology and will await RDZ. Initial workup reviewed by me shows that her white count 7.6 normal H&H and no neutrophilic shift CMP significant for a creatinine of 1.5 which is about her baseline with a normal BUN and a GFR of 35 which again is at her baseline troponins undetectable at 0.01 NT proBNP is 856 but we do not have previous to compare urinalysis shows no nitrites no leukocytes no protein and patient has no urinary symptoms and my informal interpretation of her plain film chest x-ray shows no acute processes. Upon repeat evaluation I had interactive discussion with the patient and her daughter about her workup and findings which revealed no specific cause other than probably known peripheral edema and patient has not been taking Lasix on a regular schedule at all. Given this via patient directed decision making and discharge she feels comfortable going home with more frequent Lasix dosing as every other day and patient does have a follow-up with her homemaking rehabilitation consultant next week and feels comfortable waiting to do address the issues with him and has good understanding and agreement of strict return precautions. <Denny Hassan MD - Last Filed: 06/10/24 07:33> Vital Signs: 06/07/24 13:40 06/07/24 13:44 06/07/24 15:00 Temperature 97.6 F Temperature Source Oral Pulse Rate 75 67 Pulse Rate [Right Brachial] 81 Respiratory Rate 20 Blood Pressure 180/92 H Blood Pressure [Right Arm] 180/92 H Blood Pressure Mean [Right Arm] 121 Blood Pressure Source Blood Pressure Source [Right Arm] Automatic Cuff Blood Pressure Position Blood Pressure Position [Right Arm] Supine 02 Sat by Pulse Oximetry 94 L 95 94 L Oxygen Delivery Method Room Air Room Air 06/07/24 17:07 Temperature 98.7 F Temperature Source Oral Pulse Rate 84 Pulse Rate [Right Brachial] Respiratory Rate 20 Blood Pressure 112/87 Blood Pressure [Right Arm] Blood Pressure Mean [Right Arm] Blood Pressure Source Automatic Cuff Blood Pressure Source [Right Arm] Blood Pressure Position Supine Blood Pressure Position [Right Arm] 02 Sat by Pulse Oximetry Oxygen Delivery Method Room Air Lab Data Lab Results 06/07/24 14:07: WBC 7.6, RBC 4.38, Hgb 13.3, Hct 42.0, MCV 95.9, MCH 30.4, MCHC 31.7 L, RDW 15.5, Plt Count 245, MPV 8.4, Neut % (Auto) 63.9, Lymph % (Auto) 23.0, Mills % (Auto) 6.9, Eos % (Auto) 5.1, Baso % (Auto) 1.1, Neut # (Auto) 4.9, Lymph # (Auto) 1.8, Mills # (Auto) 0.5, Eos # (Auto) 0.4, Baso # (Auto) 0.1, Sodium 139, Potassium 3.6, Chloride 107, Carbon Dioxide 28, Anion Gap 7.6, BUN 16, Creatinine 1.50 H, Estimated Creat Clear 52, Estimated GFR 35 L, Est GFR ( Amer) 42 L, Glucose 131 H, Calcium 8.8, Total Bilirubin 0.6, AST 33, ALT 21, Alkaline Phosphatase 76, Troponin I < 0.01, NT-Pro-B Natriuret Pep 856 H , Total Protein 6.5, Albumin 3.6, Globulin 2.9, Albumin/Globulin Ratio 1.2 06/07/24 14:15: Urine Color Yellow, Urine Appearance Clear, Urine pH 6.0, Ur Specific [place] 1.020, Urine Protein Negative, Urine Glucose (UA) Negative, Urine Ketones Negative, Urine Blood Negative, Urine Nitrate Negative, Urine Bilirubin Negative, Urine Urobilinogen 0.2, Ur Leukocyte Esterase Negative, Urine RBC Occasional, Urine WBC 3-5, Ur Squamous Epith Cells 5-10, Urine Bacteria Trace 06/07/24 14:43: SARS-CoV-2 (PCR) Not detected, Influenza A Untype (PCR) Not detected, Influenza Type B (PCR) Not detected Orders (Tests/Meds): ORDERS Category Date Time Status Chest XR 2 view (NOT portable) [XR chest 2V] Stat Exams 06/07/24 13:51 Completed BNP [NT Pro Brain Natriuretic Pep.] Stat Lab 06/07/24 14:07 Completed CBC w/Auto Diff [Complete Blood Count Auto Diff] Stat Lab 06/07/24 14:07 Completed CMP [Comprehensive Metabolic Panel] Stat Lab 06/07/24 14:07 Completed Rapid PCR Covid and Flu A/B Stat Lab 06/07/24 14:43 Completed Trop I [Troponin I] Stat Lab 06/07/24 14:07 Completed UA [Urinalysis and Microscopic] Stat Lab 06/07/24 14:15 Completed Medical Decision Narrative: In summary patient is a 68-year-old female who presents to the emergency department for evaluation of subjective swelling and cough. Patient is initially with an elevated blood pressure of 180/92 satting at 94% on room air breathing 20 times a minute with a pulse of 81 upon arrival, afebrile at 97.6. Physical exam is remarkable for no tenderness to palpation and I am unable to appreciate a significant edema although daughter in the room says her face and hands are swollen which is not normal for her mother. Patient has 2+ 2+ dependent edema which is known and not excessive. Breath sounds are clear and equal bilaterally to the bases patient is apparently in normal sinus rhythm on the bedside monitor with no increased work of breathing or accessory muscle use.. Differential diagnosis includes CHF versus acute on CKD versus viral respiratory infection etc. Initial workup will be conducted with hematologic labs plain film chest x-ray urinalysis.. Initial interventions are deferred for now due to unclear etiology and will await RDZ. Initial workup reviewed by me shows that her white count 7.6 normal H&H and no neutrophilic shift CMP significant for a creatinine of 1.5 which is about her baseline with a normal BUN and a GFR of 35 which again is at her baseline troponins undetectable at 0.01 NT proBNP is 856 but we do not have previous to compare urinalysis shows no nitrites no leukocytes no protein and patient has no urinary symptoms and my informal interpretation of her plain film chest x-ray shows no acute processes. Upon repeat evaluation I had interactive discussion with the patient and her daughter about her workup and findings which revealed no specific cause other than probably known peripheral edema and patient has not been taking Lasix on a regular schedule at all. Given this via patient directed decision making and discharge she feels comfortable going home with more frequent Lasix dosing as every other day and patient does have a follow-up with her homemaking rehabilitation consultant next week and feels comfortable waiting to do address the issues with him and has good understanding and agreement of strict return precautions. I was consulted by the ERIN, and we discussed the complexity of the problems being addressed. I approved the treatment and management plan for this patient's care in the Emergency Department, thus performing a substantive portion of the medical decision making. Denny Hassan MD Critical Care <CAITY Nava - Last Filed: 06/07/24 17:48> Critical Care Time Critical Care Time: No
--- NOTE | 2024-06-07 13:51 | XR_ITS ---
PROCEDURE INFORMATION: Exam: XR Chest Exam date and time: 06/07/2024 1:47 PM Age: 68 years old Clinical indication: Cough; Additional info: Volume overload and cough TECHNIQUE: Imaging protocol: Radiologic exam of the chest. Views: 2 views. COMPARISON: CT CHEST WO CON 05/03/2024 9:37 AM FINDINGS: Lungs: Minimal left basilar subsegmental atelectasis. No consolidation. Pleural spaces: Unremarkable. No pleural effusion. No pneumothorax. Heart/Mediastinum: Unremarkable. No cardiomegaly. Bones/joints: Unremarkable. IMPRESSION: No infiltration identified.
[2024-06-07 14:15] LABS: Basophils # 0.1 K/mm3 (0-0.2); Basophils % 1.1 % (0.1-2.0); Eosinophils # 0.4 K/mm3 (0.0-0.4); Eosinophils % 5.1 % (0.1-12.0); Hemoglobin 13.3 g/dL (12.2-16.2); Lymphocytes # 1.8 K/mm3 (0.7-4.5); Mean Corpuscular HGB Conc 31.7 g/dL (31.8-35.4); Mean Corpuscular Hemoglobin 30.4 pg (27.0-31.2); Mean Corpuscular Volume 95.9 fl (81-99); Mean Platelet Volume 8.4 fl (7.4-10.4); Monocytes # 0.5 K/mm3 (0.1-1.0); Monocytes % 6.9 % (1.7-9.3); Neutrophils # 4.9 K/mm3 (1.8-7.8); Neutrophils % 63.9 % (37.0-80.0); Platelet Count 245 K/mm3 (142-424); Red Blood Count 4.38 M/mm3 (4.20-5.40); Red Cell Distribution Width 15.5 % (11.5-17.5); White Blood Count 7.6 K/mm3 (4.8-10.8)
[2024-06-07 14:18] LABS: Microscopic, Urine URINE MICROSCOPIC (MICROSCOPIC)
[2024-06-07 14:20] LABS: Appearance,Urine CLEAR (Clear); Bilirubin,Urine Negative (Negative); Blood, Urine Negative (Negative); Color,Urine YELLOW (Yellow); Glucose,Urine (UA) Negative (Negative); Ketones,Urine Negative (Negative); Leukocyte Esterase,Urine Negative (Negative); Nitrate,Urine Negative (Negative); Protein,Urine Negative (Negative); Urobilinogen,Urine 0.2 EU/dl (0.2)
[2024-06-07 14:25] LABS: Albumin Level 3.6 g/dl (3.5-5.0); Chloride 107 mmol/L (98-107); Potassium 3.6 mmoL/L (3.5-5.1); Sodium 139 mmol/L (136-145)
[2024-06-07 14:28] LABS: Alanine Aminotransferase 21 U/L (12-78); Alkaline Phosphatase 76 U/L (38-126); Anion Gap 7.6 mEq/L (5-15); Aspartate Amino Transferase 33 U/L (14-36); Bilirubin,Total 0.6 mg/dl (0.2-1.3); Blood Urea Nitrogen 16 mg/dl (7-17); Carbon Dioxide 28 mmol/L (22.0-30.0); Creatinine Clearance Estimated 52 mL/min (50-200); Estimated Glomerular Filt Rate 35 ml/min (>60); GFR (African American) 42 ML/MIN (>60)
[2024-06-07 14:29] LABS: Calcium 8.8 mg/dl (8.4-10.2); Glucose 131 mg/dl (74-100)
[2024-06-07 14:35] LABS: RBC,Urine Occasional #/hpf (0-3)
[2024-06-07 14:36] LABS: Bacteria,Urine Trace /lpf
[2024-06-07 14:38] LABS: NT Pro Brain Natriuretic Pep. 856 pg/mL (0-125)
[2024-06-07 14:41] LABS: Troponin I < 0.01 ng/ml (0.00-0.034)
[2024-06-07 14:58] LABS: Coronavirus 19, PCR Not Detected (NotDetected); Influenza A, PCR Not Detected (NotDetected); Influenza B, PCR Not Detected (NotDetected)
[2024-06-07 15:00] VITALS: PULSE 67; O2SAT 94
[2024-06-07 16:13] LABS: Albumin/Globulin Ratio 1.2 (1.1-1.8); Globulin 2.9 g/dL (1.3-3.2); Total Protein,Serum 6.5 g/dl (6.3-8.2)
[2024-06-07 17:07] VITALS: BP 112/87; PULSE 84; RESP 20; TEMP 37.1; O2SAT 97
== END 2024-06-07 17:11 | disposition home or self-care (01) ==
PROVIDERS: Physician Assistant; Emergency Provider Emergency Medicine; PCP Nurse Practitioner Family
DX: R60.0 Localized edema (principal); R53.1 Weakness; R05.9 Cough, unspecified
CPT/HCPCS: 71046; 80053; 81001; 83880; 84484; 85025; 87636; 99283